=== PATIENT | female | born 1955 | race Two or more races ===

== ENCOUNTER 2018-10-01 22:46 | Inpatient (IN) | payer MEDICAID ==
[~2018-10-01] VITALS: Ht 157.5 cm; Wt 69.9 kg
[~2018-10-01 22:46] MED LIST: AMLO5TAB4 PO; BUPR75TA3 PO; CALC-834; ESTR1TAB9; FOLI0.4T2; GLUC100017; HYDR-3658; LEVO1POW; LORA-258; METH1POW; NAPR220C15; OMEP2.5S2; PRED5POW; TERI2.4P; [UNRECOGNIZED DRUG - CODE]; [UNRECOGNIZED DRUG - CODE]
--- NOTE | 2018-10-01 23:00 | NUR ---
PT BIB RA WITH A C/O LUE WOUND WITH PURULENT DRAINAGE. PT IS C/O 10/10 PAIN. PT TOOK A NORCO 10/325MG TAB BRAKE RIDER WITH NO RELIEF. PT IS UNABLE TO MOVE THE LUE WITHOUT PAIN. PT USES THE RT ARM TO MOVE THE LEFT. PT IS GUARDING THE LT ELBOW. LT ELBOW ELEVATED ON BLANKETS AND PADDED WITH 4X4 GAUZE.
--- NOTE | 2018-10-01 23:15 | NUR ---
PT HAD TO USE THE BATHROOM. BEDSIDE COMMODE WAS BROUGHT TO THE ROOM AND PT WAS ASSISTED TO THE COMMODE.
--- NOTE | 2018-10-01 23:20 | NUR ---
URINE SAMPLE OBTAINED AND SENT TO THE LAB.
[2018-10-01 23:24] LABS: BASOPHILS % (AUTO) 0.3 % (0.0-2.0); EOSINOPHILS % (AUTO) 3.2 % (0.0-6.0); HEMATOCRIT 47 % (33-45); HEMOGLOBIN 15.4 g/dL (11.5-14.8); LYMPHOCYTES # (AUTO) 0.5 /CMM (0.8-4.8); LYMPHOCYTES % (AUTO) 3.5 % (20.0-44.0); MEAN CORPUSCULAR HGB CONC 33 g/dl (31.0-36.0); MEAN CORPUSCULAR VOLUME 99 fL (82-100); MONOCYTES # (AUTO) 0.3 /CMM (0.1-1.30); MONOCYTES % (AUTO) 1.8 % (2.0-12.0); NEUTROPHILS # (AUTO) 13.5 /CMM (1.8-8.9); NEUTROPHILS % (AUTO) 91.2 % (43.0-81.0); PLATELET COUNT (AUTO) 324 /CMM (150-450); RED BLOOD CELL COUNT(AUTO) 4.79 MIL/uL (4.0-5.2); WHITE BLOOD COUNT (AUTO) 14.8 K/uL (4.3-11.0)
--- NOTE | 2018-10-01 23:25 | NUR ---
XRAY AT THE BEDSIDE.
--- NOTE | 2018-10-01 23:26 | NUR ---
PT REC'D PAIN MEDICATION ORDERED.
[2018-10-01] MEDS ORDERED: VANCOMYCIN 1 GM VIAL ONE (23:27)
[2018-10-01] MEDS ORDERED: MORPHINE SULFATE INJ 2 MG/ML DISP.SYRIN ONE (23:27)
[2018-10-01] MEDS ORDERED: PIPERACILLIN /TAZOBACTAM 3.375 G VIAL IV ONE (23:27)
[2018-10-01 23:28] LABS: APPEARANCE,URINE Cloudy (CLEAR); BILIRUBIN,URINE MODERATE (NEGATIVE); BLOOD, URINE Small Ery/uL (NEGATIVE); COLOR,URINE Amber (YELLOW); KETONES,URINE Trace (NEGATIVE); LEUKOCYTE ESTERASE ,URINE Negative (NEGATIVE); NITRITE, URINE Negative (NEGATIVE); PROTEIN,URINE 30 mg/dl (NEGATIVE); UGLUCOSE Negative (NEGATIVE); UROBILINOGEN,URINE 0.2 EU/dL (0.2)
[2018-10-01 23:30] LABS: CALCIUM, SERUM 8.7 mg/dL (8.5-10.1); CARBON DIOXIDE 20 mmol/L (21-32); CHLORIDE 98 mmol/L (98-107); CREATININE 1.2 mg/dL (0.6-1.3); GLUCOSE 197 mg/dL (74-106); POTASSIUM 3.2 mmol/L (3.5-5.1); SODIUM SERUM 134 mmol/L (136-145); UREA NITROGEN, BLOOD 14 mg/dL (7-18)
[2018-10-01] MEDS ORDERED: PIPERACILLIN /TAZOBACTAM 3.375 G in IV D5W 50 ML IV ONE (23:30)
[2018-10-01] MEDS ORDERED: VANCOMYCIN 1 GM in IV D5W 250 ML IV ONE (23:30)
[2018-10-01] MEDS ORDERED: MORPHINE SULFATE INJ 2 MG/ML DISP.SYRIN IV ONE (23:30)
[2018-10-01] MEDS ORDERED: ONDANSETRON HCL/PF 4 MG/2 ML VIAL ONE (23:34)
[2018-10-01 23:36] LABS: ALANINE AMINOTRANSFERASE 28 U/L (12-78); ALBUMIN 3.3 g/dL (3.4-5.0); ALKALINE PHOSPHATASE 78 U/L (46-116); ASPARTATE AMINOTRANSFERASE 19 U/L (15-37); BILIRUBIN,DIRECT 0.1 mg/dL (0.0-0.2); BILIRUBIN,TOTAL 0.6 mg/dL (0.2-1.0); TOTAL PROTEIN, SERUM 6.3 g/dL (6.4-8.2)
--- NOTE | 2018-10-01 23:36 | NUR ---
PT STATED THAT SHE WAS FEELING NAUSEATED. PT RECEIVED MEDICATION ORDERED.
--- NOTE | 2018-10-01 23:55 | NUR ---
US TECH IS AT THE BEDSIDE.
[2018-10-02] MEDS ORDERED: ONDANSETRON HCL/PF 4 MG/2 ML VIAL IV ONE
[2018-10-02] MEDS ORDERED: IV NS 0.9% 1,000 ML BAG IV ONE
[2018-10-02 00:04] LABS: BACTERIA,URINE Many /HPF (None Seen); RBC,URINE 0-2 /HPF (0-2); SQUAMOUS EPITHELIAL CELL,UR Many /HPF (None Seen); WBC,URINE 0-2 /HPF (0-3)
--- NOTE | 2018-10-02 00:50 | NUR ---
PT RANG THE CALL LIGHT AND STATED THAT SHE WAS FEELING ITCHY. MD NOTIFIED.
[2018-10-02] MEDS ORDERED: PRED1TAB PO (00:52)
[2018-10-02] MEDS ORDERED: TRAM50TA2 PO (00:52)
[2018-10-02] MEDS ORDERED: METH2.5T PO (00:52)
[2018-10-02] MEDS ORDERED: GABA600T12 PO (00:52)
[2018-10-02] MEDS ORDERED: CETI-102 PO (00:52)
[2018-10-02] MEDS ORDERED: FOLI1TAB16 PO (00:52)
[2018-10-02] MEDS ORDERED: LEVO100T9 PO (00:52)
[2018-10-02] MEDS ORDERED: diphenhydrAMINE HCL 50 MG/ML VIAL IV ONE (01:00)
[2018-10-02] MEDS ORDERED: diphenhydrAMINE HCL 50 MG/ML VIAL ONE (01:00)
--- NOTE | 2018-10-02 01:30 | NUR ---
PT RANG THE CALL LIGHT. PT STATED THAT SHE HAD TO USE THE BATHROOM. PT WAS UNABLE TO WALK TO THE BATHROOM DUE TO THE PAIN IN HER LUE. BEDSIDE COMMODE WAS USED. PT HAD APPROX 500 ML PALE YELLOW URINE OUTPUT. PT WAS ASSISTED BACK TO BED AND RECONNECTED TO THE MONITOR AND CONTINUOUS PULSE OX.
[2018-10-02] MEDS ORDERED: MORPHINE SULFATE INJ 4 MG/ML DISP.SYRIN ONE (01:43)
--- NOTE | 2018-10-02 01:50 | NUR ---
REPORT GIVEN TO LUCIANO DAVIS
--- NOTE | 2018-10-02 01:50 | NUR ---
ENDORSED THE SEPSIS REASSESSMENT AFTER FLUIDS TO LUCIANO DAVIS
[2018-10-02] MEDS ORDERED: MORPHINE SULFATE INJ 2 MG/ML DISP.SYRIN IV ONE (02:00)
[2018-10-02 02:15] VITALS: BP 141/82
--- NOTE | 2018-10-02 02:30 | NUR ---
RECEIVED AND ADMITTED PT FROM ER IN STABLE CONDITION. A, OX4. BREATHING EVENLY. NO SOB. NAD. WITH COMPLAINT OF L ELBOW PAIN. DRESSING WAS CHANGED , GOOD SKIN CARE RENDERED AND WOUND SAMPLE COLLECTED FOR CULTURE. ON ONGOING IVF THERAPY FROM ER. TOLERATED WELL . IV SITE INTACT AND PATENT. MEDICAL HISTORY WAS OBTAINED FROM THE PT AND THE FRIEND AT THE BED SIDE, VSS. UNABLE TO PERFORM A COMPLETE SKIN/ BODY CHECK DUE TO HER PHYSICAL CONDITION AND PAIN. NEEDS ATTENDED. BED LOW LOCKED. CALL LIGHT WITHIN REACH,. WILL CONT TO MONITOR AND WILL F/U WITH MD'S ORDERS
[2018-10-02] MEDS ORDERED: ACETAMINOPHEN 325 MG TABLET PO PRN (03:30)
[2018-10-02] MEDS ORDERED: ZOLPIDEM TARTRATE 5 MG TABLET PO PRN (03:30)
[2018-10-02] MEDS ORDERED: ALPRAZOLAM 0.25 MG TABLET PO PRN (03:30)
[2018-10-02] MEDS: HYDROCODONE/APAP 5/325MG 1 EACH TABLET PO PRN ×4 (03:32→20:13)
--- NOTE | 2018-10-02 03:35 | NUR ---
NORCO GIVEN FOR C/O L ELBOW PAIN. WILL CONT TO MONITOR.
[2018-10-02 04:00] VITALS: BP 116/95
--- NOTE | 2018-10-02 04:52 | NUR ---
PT REPORTED PAIN IS NOT MANAGED BY NORCO . PAGED DR. ABDALLA TO OBTAIN A NEW ORDER . AWAITING FOR HIS CALL BACK
--- NOTE | 2018-10-02 04:58 | NUR ---
RECEIVED A CALL BACK FROM DR ABDALLA W/ A NEW ORDER FOR - DILAUDID 1MG Q3HRS PRN - ZOFRAN 4MG Q4HRS PRN NEW ORDERS NOTED
[2018-10-02] MEDS ORDERED: CEFEPIME 1 GM in IV D5W 50 ML IV SCH (05:00)
[2018-10-02] MEDS: HYDROMORPHONE 1 MG/1 ML DISP.SYRIN IV PRN ×2 (05:08→10:22)
[2018-10-02] MEDS: ONDANSETRON HCL/PF 4 MG/2 ML VIAL IV PRN ×2 (05:12→10:26)
[2018-10-02] MEDS ORDERED: CEFEPIME 1 GM VIAL ONE (05:27)
--- NOTE | 2018-10-02 06:38 | NUR ---
PT IN BED AWAKE AND RESPONSIVE. BREATHING EVENLY. NO SOB. NO ACUTE DISTRESS. WITH ON AND OFF C/O PAIN ON LUE. PAIN MEDS GIVEN ORDERED PER PT'S REQUEST ./ NEEDS ATTENDED. BED LOW LOCKED. CALL LIGHT WITHIN REACH. WILL CONT TO MONITOR AND WILL ENDORSE TO AM SHIFT FOR ELTON .
--- NOTE | 2018-10-02 07:02 | NUR ---
MS RN NOTES PATIENT IN BED ALERT ORIENTED X 4. NO ACUTE DISTRESS NOTED. BREATHING UNLABORED. IV ACCESS PATENT AND INTACT, NO REDNESS OR SWELLING NOTED. SAFETY MEASURES IN PLACE. CALL LIGHT WITHIN REACH. WILL CONTINUE TO MONITOR ACCORDINGLY.
[2018-10-02] MEDS ORDERED: FEE PK DOSING 1 MIN EA MC ONE ×2 (07:43→07:48)
[2018-10-02 08:00] VITALS: BP 121/68
[2018-10-02] MEDS ORDERED: TRAMADOL HCL 50 MG TABLET PO PRN (08:30)
[2018-10-02 08:58] LABS: BASOPHILS % (AUTO) 0.2 % (0.0-2.0); EOSINOPHILS % (AUTO) 5.1 % (0.0-6.0); HEMATOCRIT 43 % (33-45); HEMOGLOBIN 13.6 g/dL (11.5-14.8); LYMPHOCYTES # (AUTO) 0.6 /CMM (0.8-4.8); LYMPHOCYTES % (AUTO) 5.2 % (20.0-44.0); MEAN CORPUSCULAR HGB CONC 32 g/dl (31.0-36.0); MEAN CORPUSCULAR VOLUME 99 fL (82-100); MONOCYTES # (AUTO) 0.3 /CMM (0.1-1.30); MONOCYTES % (AUTO) 2.8 % (2.0-12.0); NEUTROPHILS # (AUTO) 10.5 /CMM (1.8-8.9); NEUTROPHILS % (AUTO) 86.7 % (43.0-81.0); PLATELET COUNT (AUTO) 272 /CMM (150-450); RED BLOOD CELL COUNT(AUTO) 4.29 MIL/uL (4.0-5.2); WHITE BLOOD COUNT (AUTO) 12.2 K/uL (4.3-11.0)
[2018-10-02] MEDS: FOLIC ACID 1 MG TABLET PO SCH (09:00)
[2018-10-02] MEDS: LEVOTHYROXINE SODIUM 100 MCG TABLET PO SCH (09:00)
[2018-10-02] MEDS: AMLODIPINE BESYLATE 5 MG TABLET PO SCH (09:00)
[2018-10-02] MEDS: cetrizine 10 MG TABLET PO SCH (09:00)
[2018-10-02 09:07] LABS: CALCIUM, SERUM 7.7 mg/dL (8.5-10.1); CREATININE 0.7 mg/dL (0.6-1.3); POTASSIUM 3.1 mmol/L (3.5-5.1)
--- NOTE | 2018-10-02 09:30 | NUR ---
WOUND CARE CONSULT: PT PRESENTS WITH LEFT ELBOW DRAINING PURULENT WOUND (PREVIOUS SURGICAL SITE OF ELBOW REPLACEMENT), PRESENT ON ADMISSION. ORTHO CONSULTED PER PMD. RECOMMENDATIONS MADE FOR LOCAL CARE AND SKIN PROTECTION AND DISCUSSED WITH NURSING STAFF. PT REFUSED NEED FOR FULL SKIN ASSESSMENT. WILL SEE PRN. MARTINEZ IN AGREEMENT WITH PLAN OF CARE. CURRENT ISAURO SCORE IS 18. Addendum: 10/02/18 at 0959 by JOE SALMERON WNDNU Amended: Links added.
[2018-10-02] MEDS: VANCOMYCIN 0.75 GM in IV D5W 250 ML IV SCH (12:53)
[2018-10-02] MEDS: GABAPENTIN 300 MG CAPSULE PO SCH ×2 (12:53→16:26)
[2018-10-02 16:00] VITALS: BP 115/71
[2018-10-02] MEDS: CEFEPIME 2 GM in IV D5W 100 ML IV SCH (16:26)
--- NOTE | 2018-10-02 18:15 | NUR ---
MS RN NOTES NOTED REDNESS ON THE LOWER BACK PATIENT STATED SHE'S ITCHING AT THE LOWER BACK WHERE SHE'S LYING ON WITH UNDER PADS. PATIENT STATED SHE'S ALLERGIC TO PLASTIC. UNDER PADS REMOVED, REPLACED WITH COTTON LINEN. NO SOB NOTED. BREATHING UNLABORED. NOTIFIED DR ABDALLA WITH NEW ORDERS FOR BENADRYL. WILL CONTINUE TO MONITOR PATIENT.
[2018-10-02] MEDS ORDERED: POTASSIUM CHLORIDE 20 MEQ TAB.PRT.SR PO ONE (18:30)
[2018-10-02] MEDS ORDERED: diphenhydrAMINE HCL ELIX 25 MG/10 ML UDC PO PRN (18:30)
--- NOTE | 2018-10-02 19:00 | NUR ---
MS RN NOTES PATIENT IN BED ALERT ORIENTED X 4. NO ACUTE DISTRESS NOTED. BREATHING UNLABORED. IV ACCESS PATENT AND INTACT, NO REDNESS OR SWELLING NOTED. DUE MEDICATIONS GIVEN, NO ASE NOTED. NEEDS ATTENDED AND ANTICIPATED. KEPT CLEAN DRY AND COMFORTABLE. ENCOURAGE TURNING AND REPOSTIONING EVERY [address] CALL LIGHT WITHIN REACH. ENDORSED TO NIGHT NURSE FOR CONTINUITY OF CARE.
--- NOTE | 2018-10-02 19:30 | NUR ---
MS RN NOTES RECEIVED RESTING COMFORTABLY ON BED A/O X4,BREATHING REGULAR,NOT IN ANY FORM OF DISTRESS,LEFT ARM ELBOW APPEARS SWOLLEN WITH DISCHARGES NOTED.DRESSING INTACT AND DRY ELEVATED ON PILLOWS.SALINE LOCK RIGHT WRIST INTACT AND PATENT.NO PAIN AT THE MOMENT.CALL LIGHT IN REACH,NEEDS ANTICIPATED.
[2018-10-02 20:00] VITALS: BP 112/69
--- NOTE | 2018-10-02 20:13 | NUR ---
MS RN NOTES PAIN MANAGEMENT X/O PAIN 7/10 ON LEFT ELBOW,NORCO 5/325MG,1 TAB PO GIVEN,BLOOD PRESSURE 112/69.
[2018-10-02 20:42] VITALS: BP 112/69
[2018-10-02] MEDS ORDERED: buPROPion 75 MG TABLET PO SCH (22:00)
--- NOTE | 2018-10-02 22:00 | NUR ---
MS RN NOTES SOUND ASLEEP,LEFT ELBOW ELEVATED ON PILLOWS
[2018-10-03] MEDS: VANCOMYCIN 0.75 GM in IV D5W 250 ML IV SCH ×2 (00:04→12:08)
[2018-10-03] MEDS: HYDROCODONE/APAP 5/325MG 1 EACH TABLET PO PRN ×4 (00:29→14:02)
--- NOTE | 2018-10-03 00:30 | NUR ---
MS RN NOTES PAIN MANAGEMENT C/O PAIN LEFT ELBOW 5/10 ON PAIN SCALE,MEDICATED WITH NORCO 5/325MG,1 TAB PO ORDERED.
[2018-10-03] MEDS: CEFEPIME 2 GM in IV D5W 100 ML IV SCH (05:11)
--- NOTE | 2018-10-03 05:58 | NUR ---
MS RN NOTES PAIN MANAGEMENT AWAKE,PUT SELF ON SITTING POSITION.C/O PAIN ON LEFT ELBOW 6/10 ON PAIN SCALE,NORCO 5/325MG,1 TAB PO GIVEN
[2018-10-03 06:38] LABS: BASOPHILS % (AUTO) 0.2 % (0.0-2.0); EOSINOPHILS % (AUTO) 6.3 % (0.0-6.0); HEMATOCRIT 40 % (33-45); HEMOGLOBIN 13.1 g/dL (11.5-14.8); LYMPHOCYTES # (AUTO) 0.9 /CMM (0.8-4.8); LYMPHOCYTES % (AUTO) 11.4 % (20.0-44.0); MEAN CORPUSCULAR HGB CONC 33 g/dl (31.0-36.0); MEAN CORPUSCULAR VOLUME 98 fL (82-100); MONOCYTES # (AUTO) 0.4 /CMM (0.1-1.30); MONOCYTES % (AUTO) 4.7 % (2.0-12.0); NEUTROPHILS # (AUTO) 6.4 /CMM (1.8-8.9); NEUTROPHILS % (AUTO) 77.4 % (43.0-81.0); PLATELET COUNT (AUTO) 283 /CMM (150-450); RED BLOOD CELL COUNT(AUTO) 4.03 MIL/uL (4.0-5.2); WHITE BLOOD COUNT (AUTO) 8.3 K/uL (4.3-11.0)
[2018-10-03 06:46] LABS: CALCIUM, SERUM 7.8 mg/dL (8.5-10.1); CREATININE 0.7 mg/dL (0.6-1.3); POTASSIUM 3.3 mmol/L (3.5-5.1)
--- NOTE | 2018-10-03 06:47 | NUR ---
MS RN NOTES SLEPT WITH NORCO,LEFT ARM KEPT ELEVATED ON PILLOWS,DRESSING INTACT AND DRY.IV ABX TOLERATED WELL.CALL LIGHT IN REACH,NEEDS ATTENDED.WILL ENDORSE TO DAY NURSE FOR ELTON.
--- NOTE | 2018-10-03 07:30 | NUR ---
MS/RN Patient received Patient received from hourly shift. A/O X4, vital signs stable. Left arm remain with edema, arm pink and warm to touch. Encouraged to move all fingers to help with circulation. Call ight within reach, will continue to monitor and ensure safety.
[2018-10-03 08:00] VITALS: BP 98/61
[2018-10-03] MEDS: cetrizine 10 MG TABLET PO SCH (08:14)
[2018-10-03] MEDS: FOLIC ACID 1 MG TABLET PO SCH (08:15)
[2018-10-03 08:16] VITALS: BP 98/61
[2018-10-03] MEDS: LEVOTHYROXINE SODIUM 100 MCG TABLET PO SCH (08:16)
[2018-10-03] MEDS: AMLODIPINE BESYLATE 5 MG TABLET PO SCH (08:16)
[2018-10-03] MEDS: GABAPENTIN 300 MG CAPSULE PO SCH ×2 (08:16→12:07)
--- NOTE | 2018-10-03 08:45 | NUR ---
MS/RN S/B Dr Cisneros Seen by Dr Cisneros - patient for possible discharge later today, will need to follow up with orthopedic surgeon.
[2018-10-03] MEDS: predniSONE 1 MG TABLET PO SCH ×2 (09:00→14:02)
--- NOTE | 2018-10-03 09:01 | NUR ---
MS/RN Medications Morning medications administered as ordered.
[2018-10-03] MEDS ORDERED: POTASSIUM CHLORIDE 20 MEQ TAB.PRT.SR PO SCH (11:30)
--- NOTE | 2018-10-03 15:13 | NUR ---
MS/RN GABRIELLA Patient left hospital at 1510 against medical advice. Heplock and name bands removed, dressing changed and pictures taken prior to leaving. Explained to patient the risks involved in leaving against medical advice including further traveling of infection, damage to tissues in arm but still insisting on leaving. Patient explained the importance of following up with primary care doctor or orthopedic doctor as soon as possible to prevent infection from occurring to left arm. Instructed to go to the nearest emergency room if unable to get appointment. All personal belongings returned to patient and signed for on belongings list. Escorted to main lobby by CANAL SUPERINTENDENT and , Dr Cisneros, nursing supervisor paste mixing and charge nurse made aware.
[2018-10-06] MEDS ORDERED: METHOTREXATE SODIUM (2.5MG) 2.5 MG TABLET PO SCH (09:00)
== END 2018-10-03 15:05 | disposition left against medical advice (07) | DRG 349 ==
LOC: ER 22:48 → TELE 10-02 01:45 → MED 10-02 10:56
PROVIDERS: ADMIT Internal Medicine; ATTEND Internal Medicine
DX: T84.59XA Infection and inflammatory reaction due to other internal joint prosthesis, initial encounter (principal); M86.18 Other acute osteomyelitis, other site; F32.9 Major depressive disorder, single episode, unspecified; I10 Essential (primary) hypertension; Y83.9 Surgical procedure, unspecified as the cause of abnormal reaction of the patient, or of later complication, without mention of misadventure at the time of the procedure; Y92.009 Unspecified place in unspecified non-institutional (private) residence as the place of occurrence of the external cause; M06.9 Rheumatoid arthritis, unspecified; F41.9 Anxiety disorder, unspecified; Z98.890 Other specified postprocedural states; Z79.899 Other long term (current) drug therapy; E03.9 Hypothyroidism, unspecified; E87.6 Hypokalemia
CPT/HCPCS: 36415; 71045-TC; 73080-TC; 80048-TC; 80076-TC; 80202-TC; 81000-TC; 83605-TC; 84484-TC; 85025-TC; 85730-TC; 87040-TC; 87070-TC; 87081-TC; 87086-TC; 93971-TC; A6253; A6402; A6403; G0378; J0692; J1170; J1200; J2270; J2405; J2543; J3370; J7030; J7040; J7050; J7060; J7512; Q0163

== ENCOUNTER 2018-10-11 21:07 | Inpatient (IN) | payer MEDICAID ==
[~2018-10-11] VITALS: Ht 162.6 cm; Wt 63.5 kg
[~2018-10-11 21:07] MED LIST changes: -CALC-834; +CETI-102 PO; -ESTR1TAB9; -FOLI0.4T2; +FOLI1TAB16 PO; +GABA600T12 PO; -GLUC100017; -HYDR-3658; +LEVO100T9 PO; -LEVO1POW; -LORA-258; -METH1POW; +METH2.5T PO; -NAPR220C15; -OMEP2.5S2; +PRED1TAB PO; -PRED5POW; -TERI2.4P; +TRAM50TA2 PO; -[UNRECOGNIZED DRUG - CODE]; -[UNRECOGNIZED DRUG - CODE]
--- NOTE | 2018-10-11 21:15 | NUR ---
PT BIBRA39 FROM HOME C/O AMS X 1 DAY PER . PATIENT JUST D/C FROM HERE LAST WEEK PER . PATIENT IS NONVERBAL AT THIS TIME. PT ON MONITOR IN BED 8. WILL CONTINUE TO MONITOR. AT BEDSIDE.
[2018-10-11] MEDS ORDERED: IV NS 0.9% 1,000 ML BAG IV ONE (21:30)
--- NOTE | 2018-10-11 21:41 | NUR ---
PHLEB AT BEDSIDE FOR LAB DRAW
[2018-10-11 21:46] LABS: BASOPHILS # (AUTO) 0.1 /CMM (0.0-0.2); EOSINOPHILS % (AUTO) 0.9 % (0.0-6.0); HEMATOCRIT 48 % (33-45); LYMPHOCYTES # (AUTO) 1.6 /CMM (0.8-4.8); LYMPHOCYTES % (AUTO) 19.1 % (20.0-44.0); MEAN CORPUSCULAR HGB CONC 34 g/dl (31.0-36.0); MEAN CORPUSCULAR VOLUME 97 fL (82-100); MONOCYTES # (AUTO) 1.1 /CMM (0.1-1.30); NEUTROPHILS # (AUTO) 5.5 /CMM (1.8-8.9); PLATELET COUNT (AUTO) 437 /CMM (150-450); RED BLOOD CELL COUNT(AUTO) 4.92 MIL/uL (4.0-5.2); WHITE BLOOD COUNT (AUTO) 8.3 K/uL (4.3-11.0)
--- NOTE | 2018-10-11 21:48 | NUR ---
TECH AT BEDSIDE FOR EKG
--- NOTE | 2018-10-11 21:51 | NUR ---
RADIOLOGY AT BEDSIDE FOR XRAY
[2018-10-11 21:56] LABS: CALCIUM, SERUM 8.9 mg/dL (8.5-10.1); CARBON DIOXIDE 14 mmol/L (21-32); CHLORIDE 104 mmol/L (98-107); CREATININE 0.7 mg/dL (0.6-1.3); GLUCOSE 114 mg/dL (74-106); POTASSIUM 3.4 mmol/L (3.5-5.1); SODIUM SERUM 138 mmol/L (136-145); UREA NITROGEN, BLOOD 12 mg/dL (7-18)
[2018-10-11 22:02] LABS: ALANINE AMINOTRANSFERASE 28 U/L (12-78); ALBUMIN 3.2 g/dL (3.4-5.0); ALKALINE PHOSPHATASE 82 U/L (46-116); ASPARTATE AMINOTRANSFERASE 23 U/L (15-37); BILIRUBIN,DIRECT 0.2 mg/dL (0.0-0.2); BILIRUBIN,TOTAL 0.7 mg/dL (0.2-1.0); TOTAL PROTEIN, SERUM 7.3 g/dL (6.4-8.2)
[2018-10-11] MEDS ORDERED: PIPERACILLIN /TAZOBACTAM 3.375 G in IV D5W 50 ML IV ONE (22:30)
[2018-10-11] MEDS ORDERED: LEVOFLOXACIN 750 MG /D5W 150ML PIGGYBACK IV ONE (22:30)
[2018-10-11] MEDS ORDERED: PIPERACILLIN /TAZOBACTAM 3.375 G VIAL IV ONE (22:31)
[2018-10-11] MEDS ORDERED: LEVOFLOXACIN 750 MG /D5W 150ML 150 ML IV ONE (22:31)
[2018-10-11 23:08] LABS: B-TYPE NATRIURETIC PEPTIDE 76 PG/ML (0-125)
[2018-10-11 23:11] LABS: T4 (THYROXINE) 12.7 ug/dL (4.7-13.3); THYROID STIMULATING HORMONE 0.074 uIU/mL (0.358-3.74)
[2018-10-11 23:18] LABS: ABG OXYGEN SATURATION 95.2 % (92.0-98.5); ABG PH 7.464 (7.350-7.450); ABG PO2 72.4 mmHg (75.0-100.0); AaDO2 53.4 mmHg; COHb 0.7 % (0.5-1.5); MetHb 0.6 % (0.0-1.5); SITE, ABG Right Brachial; VENT MODE, BG RA
--- NOTE | 2018-10-11 23:43 | NUR ---
WOUND CULTURE SWAB OF L FOREARM SENT TO LAB
--- NOTE | 2018-10-11 23:43 | NUR ---
PT ON 4L NC, PER MD ORDER.
--- NOTE | 2018-10-11 23:58 | NUR ---
BED 115-2
[2018-10-12] VITALS (46 sets, daily range): BP systolic 96–160; BP diastolic 43–101
[2018-10-12] MEDS ORDERED: IV NS 0.9% 1,000 ML BAG IV ONE
[2018-10-12] MEDS ORDERED: VANCOMYCIN 1 GM in IV D5W 250 ML IV ONE ×2
--- NOTE | 2018-10-12 00:52 | NUR ---
0047 ETOMIDATE 20MG 0047 SUCCINYLCHOLINE 100MG 0049 21 CM AT THE LIP
--- NOTE | 2018-10-12 00:54 | NUR ---
VENT SETTINGS: TV 500 FIO2 100 PEEP +5
--- NOTE | 2018-10-12 00:55 | NUR ---
RADIOLOGY AT BEDSIDE FOR XRAY
[2018-10-12] MEDS ORDERED: ETOMIDATE 2 MG/ML VIAL IV ONE ×2 (01:00→10:03)
[2018-10-12] MEDS ORDERED: SUCCINYLCHOLINE CHLORIDE 20 MG/ML VIAL IV ONE ×2 (01:00→10:03)
[2018-10-12] MEDS ORDERED: PROPOFOL 20 ML IV ONE (01:02)
[2018-10-12] MEDS ORDERED: PROPOFOL 100 ML ONE (01:02)
[2018-10-12] MEDS ORDERED: PROPOFOL 100 ML IV ONE (01:04)
[2018-10-12 01:21] LABS: ABG BASE EXCESS -9.3 mmol/L; ABG OXYGEN SATURATION 99.3 % (92.0-98.5); ABG PCO2 20.4 mmHg (35.0-45.0); ABG PH 7.413 (7.350-7.450); ABG PO2 486.4 mmHg (75.0-100.0); AaDO2 206.2 mmHg; COHb 0.4 % (0.5-1.5); MetHb 0.7 % (0.0-1.5); O2Hb 98.2 % (94.0-97.0); SITE, ABG Right Brachial
--- NOTE | 2018-10-12 01:22 | NUR ---
CALLED DR. ABDALLA ON PHONE WITH ER DOC
--- NOTE | 2018-10-12 01:24 | NUR ---
PICC LINE CONEST FORM OBTAINED BY DAMION RUELAS
--- NOTE | 2018-10-12 01:25 | NUR ---
PICC LINE NURSE AT BEDSIDE
[2018-10-12] MEDS ORDERED: PROPOFOL 200 MG/20 ML VIAL IV ONE (01:30)
--- NOTE | 2018-10-12 01:53 | NUR ---
REPORT GIVEN TO ED, RN FOR ELTON
--- NOTE | 2018-10-12 01:53 | NUR ---
VANCOMYCIN 1GM ENDORSED TO ED, RN TO INFUSE ON FLOOR. MD ORDER SHEET GIVEN.
[2018-10-12] MEDS ORDERED: VANCOMYCIN 1 GM VIAL ONE (01:55)
[2018-10-12] MEDS ORDERED: LEVALBUTEROL HCL NEB 1.25 MG/0.5 ML VIAL.NEB NEB PRN (02:00)
[2018-10-12] MEDS ORDERED: IPRATROPIUM NEB FS 0.5 MG/2.5 ML AMPUL.NEB NEB PRN (02:00)
--- NOTE | 2018-10-12 02:15 | NUR ---
ICU/CREW SCHEDULER RECEIVED PT ORALLY INTUBATED FROM ER ON VENT, SEE FLOWSHEET FOR VENT SETTINGS.PT IS CURRENTLY SEDATED WITH PROPOFOL. PT ALSO ARRIVED TO UNIT WITH SKIN ISSUES WHICH ARE ADDRESSED ALONG WITH INTERVENTIONS TO EACH. SEE FLOWSHEET FOR DETAILED ASSESSMENT. PT WAS TURNED AND REPOSITIONED FOR COMFORT AND CARE.
--- NOTE | 2018-10-12 02:27 | NUR ---
RT NOTE PATIENT RECEIVED IN ICU 257 INTUBATED. CURRENT SETTINGS OF AC 24, 500, 100%, +5. CUFF CHECKED VIA STONER HAND. AMBU BAG @ HOB. VENT PLUGGED INTO RED OUTLET. ALARMS ON AND AUDIBLE. PATIENT HAS 7.0 ET TUBE @ 21 LIP LINE. SX DONE, SMALL WHITE THIN SECRETIONS NOTED. WILL CONTINUE TO MONITOR. Addendum: 10/12/18 at 0229 by SARA PIKE RT Amended: Links added.
[2018-10-12] MEDS ORDERED: Potassium Chloride 10 MEQ in IV D5/0.45 NACL 1,000 ML IV PRN ×2 (02:30→08:00)
[2018-10-12] MEDS ORDERED: POTASSIUM CHLORIDE 10 MEQ/50 ML PREMIXED IVPB FOR PERIPHERAL LINE IV ONE ×2 (02:30→08:30)
[2018-10-12] MEDS ORDERED: IV 1/2NS 1000 ML 1,000 ML IV SCH (02:30)
[2018-10-12] MEDS ORDERED: LABETALOL HCL IV 100MG VIAL IV PRN (02:30)
[2018-10-12] MEDS: PROPOFOL 100 ML IV PRN (02:56)
[2018-10-12] MEDS: POTASSIUM CL. PREMIX PERIPHER. 50 ML IV SCH ×6 (03:03→12:05)
--- NOTE | 2018-10-12 03:10 | NUR ---
ICU/NEWSPAPER PUBLISHER OF PT CAME IN TO SEE , STAYED FOR 30-45 MINUTES SAID HE'LL BE IN TOMORROW. BUSINESS CARD TO ICU GIVEN TO PT.
[2018-10-12] MEDS ORDERED: IV PREMIX D5 1/2NS + KCL 1,000 ML IV ONE (03:45)
[2018-10-12] MEDS ORDERED: Folic acid 1 MG/0.2 ML VIAL ONE (03:45)
[2018-10-12] MEDS: Folic acid 1 MG in IV D5W 50 ML IV SCH (03:57)
[2018-10-12] MEDS ORDERED: Potassium Chloride 20 MEQ in IV D5/0.45 NACL 1,000 ML IV ONE (04:00)
[2018-10-12 04:37] LABS: BASOPHILS # (AUTO) 0.1 /CMM (0.0-0.2); BASOPHILS % (AUTO) 1.3 % (0.0-2.0); EOSINOPHILS % (AUTO) 0.5 % (0.0-6.0); HEMATOCRIT 41 % (33-45); HEMOGLOBIN 13.5 g/dL (11.5-14.8); LYMPHOCYTES # (AUTO) 1.4 /CMM (0.8-4.8); LYMPHOCYTES % (AUTO) 16.2 % (20.0-44.0); MEAN CORPUSCULAR HGB CONC 33 g/dl (31.0-36.0); MEAN CORPUSCULAR VOLUME 96 fL (82-100); MONOCYTES # (AUTO) 1.3 /CMM (0.1-1.30); MONOCYTES % (AUTO) 15.5 % (2.0-12.0); NEUTROPHILS # (AUTO) 5.7 /CMM (1.8-8.9); NEUTROPHILS % (AUTO) 66.5 % (43.0-81.0); PLATELET COUNT (AUTO) 357 /CMM (150-450); RED BLOOD CELL COUNT(AUTO) 4.21 MIL/uL (4.0-5.2); WHITE BLOOD COUNT (AUTO) 8.6 K/uL (4.3-11.0)
[2018-10-12 04:53] LABS: ALBUMIN 2.5 g/dL (3.4-5.0); BILIRUBIN,TOTAL 0.8 mg/dL (0.2-1.0); CALCIUM, SERUM 7.3 mg/dL (8.5-10.1); CREATININE 0.6 mg/dL (0.6-1.3); MAGNESIUM 1.5 mg/dL (1.8-2.4); POTASSIUM 3.4 mmol/L (3.5-5.1); TOTAL PROTEIN, SERUM 5.9 g/dL (6.4-8.2)
--- NOTE | 2018-10-12 04:55 | NUR ---
ICU/CANOE MAKER AM LABS WERE DRAWN FOR THIS PT. AWAIT FOR ANY ABNORMAL RESULTS.
[2018-10-12] MEDS ORDERED: PIPERACILLIN /TAZOBACTAM 3.375 G in IV D5W 50 ML IV ONE (05:00)
[2018-10-12] MEDS ORDERED: PIPERACILLIN /TAZOBACTAM 3.375 G VIAL IV ONE (05:09)
--- NOTE | 2018-10-12 05:29 | NUR ---
ICU/WELT INSOLE CHANNELER PT IS CONTINUING TO GET POTASSIUM REPLACEMENT WELL IVF WITH 20MEQ OF POTASSIUM. THIS WILL BE CHANGED OVER TO 10MEQ OF POTASSIUM WHEN PHARMACY OPEN DUE TO LIMITED STOCK OF NIGHT LOCKER. WAS CALLED AND MADE AWARE
[2018-10-12 05:42] LABS: BAND % (MANUAL) 1 % (0.0-5.0); EOSINOPHILS % (MANUAL) 1 % (0-4); LYMPHOCYTES % (MANUAL) 20 % (16-48); METAMYELOCYTES % 2 % (0-0); MONOCYTES % (MANUAL) 8 % (0-11.0); MYELOCYTES % 4 % (0-0); NEUTROPHILS % (MANUAL) 61 (42-76); REACTIVE LYMPHOCYTES 3 % (0-0)
[2018-10-12] MEDS ORDERED: PIPERACILLIN /TAZOBACTAM 3.375 G in IV D5W 50 ML IV SCH ×2 (06:00→12:00)
[2018-10-12] MEDS ORDERED: FEE PK DOSING 1 MIN EA MC ONE (07:50)
[2018-10-12] MEDS: LEVOTHYROXINE INJ 100 MCG VIAL IV SCH (08:16)
[2018-10-12] MEDS: FAMOTIDINE/PF INJ 20 MG/2 ML VIAL IV SCH ×2 (08:16→21:20)
[2018-10-12] MEDS: HEPARIN SODIUM, PORCINE 5000 UNITS/1 ML VIAL SQ SCH ×2 (08:26→21:21)
--- NOTE | 2018-10-12 08:30 | NUR ---
RT NOTE PATIENT RECEIVED INTUBATED. CURRENT SETTINGS OF AC 24, 500, 100%, +5. CUFF CHECKED VIA SSIS ARCHITECT. AMBU BAG @ HOB. VENT PLUGGED INTO RED OUTLET. ALARMS ON AND AUDIBLE. PATIENT HAS 7.0 ET TUBE @ 21 LIP LINE. SX DONE, SMALL WHITE THIN SECRETIONS NOTED. WILL CONTINUE TO MONITOR
[2018-10-12] MEDS: Magnesium 1GM/D5W 100ML PREMIX 100 ML IV SCH ×3 (08:44→10:49)
[2018-10-12] MEDS: PIPERACILLIN /TAZOBACTAM 3.375 G in IV D5W 100 ML IV SCH ×3 (08:55→23:25)
[2018-10-12] MEDS: AMLODIPINE BESYLATE 5 MG TABLET PO SCH (08:57)
[2018-10-12] MEDS: cetrizine 10 MG TABLET PO SCH (08:57)
[2018-10-12] MEDS: GABAPENTIN 300 MG CAPSULE PO SCH ×3 (08:57→17:00)
[2018-10-12] MEDS ORDERED: FOLIC ACID 1 MG TABLET PO SCH (09:00)
[2018-10-12] MEDS ORDERED: ALBUTEROL HALF STRENGTH 1.25 MG/3 ML VIAL.NEB NEB PRN (09:00)
[2018-10-12] MEDS ORDERED: LEVOTHYROXINE SODIUM 100 MCG TABLET PO SCH (09:00)
[2018-10-12] MEDS ORDERED: TRAMADOL HCL 50 MG TABLET PO PRN (09:00)
--- NOTE | 2018-10-12 09:19 | NUR ---
received pt from shift nurse manager, sedated on Diprivan at 15mcg, ST, on the vent, lungs clear, no edema, OG to ILS, f/c OK output, NPO, v/s stable, no pain, pt turned and repositioned.
[2018-10-12] MEDS ORDERED: SODIUM BICARBONATE SYR 50 MEQ/50 ML DISP.SYRIN IV ONE (09:30)
--- NOTE | 2018-10-12 09:39 | NUR ---
RT NOTE PER MD ORDER CHANGED VENT SETTINGS TO RR 20 AND FIO2 40%
[2018-10-12 09:53] LABS: APPEARANCE,URINE TURBID (CLEAR); BILIRUBIN,URINE 1+ (NEGATIVE); BLOOD, URINE 1+ Ery/uL (NEGATIVE); COLOR,URINE YELLOW (YELLOW); KETONES,URINE 2+ (NEGATIVE); LEUKOCYTE ESTERASE ,URINE NEGATIVE (NEGATIVE); NITRITE, URINE NEGATIVE (NEGATIVE); PROTEIN,URINE TRACE mg/dl (NEGATIVE); UGLUCOSE NEGATIVE (NEGATIVE); UROBILINOGEN,URINE 0.2 EU/dL (0.2)
[2018-10-12] MEDS: predniSONE 1 MG TABLET PO SCH (10:00)
[2018-10-12] MEDS ORDERED: POTASSIUM CL. PREMIX PERIPHER. 50 ML IV SCH (10:00)
[2018-10-12] MEDS: predniSONE 10 MG TABLET PO SCH (10:00)
[2018-10-12] MEDS: Sodium Acetate 100 MEQ in IV D5W 1,000 ML IV PRN ×2 (10:39→22:41)
[2018-10-12 10:42] LABS: BACTERIA,URINE Rare /HPF (None Seen); RBC,URINE 0-2 /HPF (0-2); SQUAMOUS EPITHELIAL CELL,UR Rare /HPF (None Seen); WBC,URINE 0-2 /HPF (0-3)
[2018-10-12 10:44] LABS: URINE AMORPHOUS URATE Many /HPF (None Seen)
[2018-10-12] MEDS: VANCOMYCIN 1 GM in IV D5W 250 ML IV SCH (14:23)
--- NOTE | 2018-10-12 17:00 | NUR ---
pt sedated on Diprivan at 15mcg, ST, OG to ILS, f/c good output, v/s stable, no pain, pt cleaned, changed and repositioned q2hrs.
--- NOTE | 2018-10-12 19:25 | NUR ---
ICU/RESIDENTIAL AIR SEALING TECHNICIAN RECEIVED REPORT FROM DAY NURSE. SEE FLOWSHEET FOR ASSESSMENT, ALONG WITH ANY AND ALL SKIN ISSUES WHICH ARE ADDRESSED ALONG WITH THE EACH OF THE INTERVENTIONS TO THESE. PT IS CURRENTLY ON SEDATION, TOLERATING THIS WELL, WELL IVF WHICH ARE ADDRESSED ON THE IV SPREAD SHEET.PT WAS TURNED AND REPOSITIONED FOR COMFORT AND CARE. WILL CONTINUE TO MONITOR THIS PT CLOSELY.
--- NOTE | 2018-10-12 20:39 | NUR ---
ICU/DISTRICT ASSOCIATE JUDGE UPON ASSESSMENT OF PT. SHE WAS FOUND TO HAVE A TEMP OF 102.8. RECTAL PROBE WAS PLACED THEN TEMP INCREASED TO 103.1. COOLING MEASURES WERE PUT IN PLACE WITH ICE PACKS, ALONG WITH FAN. ALSO AT THIS TIME URINE AND RESPIRATORY CULTURES WERE DONE. BLOOD CULTURES WERE DONE YESTERDAY UPON ADMISSION WELL WOUND CULTURE OF THE LEFT ELBOW. WILL CONTINUE TO MONITOR THIS PT'S TEMP.
--- NOTE | 2018-10-12 21:03 | NUR ---
ICU/GENETICIST CALLED DR ABDALLA TO GET ORDER FOR TYLENOL AND PAIN MEDICATION. ORDERS WERE RECEIVED FOR TYLENOL 650MG PO Q 6 HRS AND MORPHINE 2MG IVP Q 3 HRS FOR PAIN. ORDERS WERE CARRIED OUT AND CHARGE NURSE WAS NOTIFIED OF THIS NEW CHANGES. ALSO AT THIS TIME DR ABDALLA D/C'D THE LOW INTERMITTING SUCTION.
--- NOTE | 2018-10-12 21:20 | NUR ---
ICU/AUTOMATIC DISPENSER MECHANIC NOTIFIED CHARGE NURSE ABOUT THE FLACC PAIN SCALE OF 7/10. MORPHINE 2MG GIVEN IVP BY CHARGE NURSE. ALSO FOR TEMP OF 102.3 GAVE TYLENOL VIA NGT. WILL CONTINUE TO MONITOR THIS PT'S PAIN AND TEMP. PT WAS TURNED AND REPOSITIONED FOR COMFORT AND CARE.
[2018-10-12] MEDS: MORPHINE SULFATE INJ 2 MG/ML DISP.SYRIN IV PRN (21:29)
[2018-10-12] MEDS: ACETAMINOPHEN 650 MG/20.3 ML UDC NG PRN (21:30)
[2018-10-12] MEDS: buPROPion 75 MG TABLET PO SCH (22:00)
--- NOTE | 2018-10-12 22:10 | NUR ---
ICU/TAX INVESTIGATOR PT 2200 DOSE OF WELLBUTRIN WAS HELD DUE TO PT IS CURRENTLY ORALLY INTUBATED ON SEDATION OF PROPOFOL AT 15MCG. WILL RESUME MEDICATION WHEN PT IS MORE ALERT. CHARGE NURSE MADE AWARE OF THIS.
--- NOTE | 2018-10-12 23:40 | NUR ---
ICU/EQUITY STRUCTURER PT'S AT BEDSIDE FOR VISIT ASKED FOR WHO IS LINSEED CAKE TRIMMER, DR CHASE WAS THE NAME GIVEN WHO THIS PT'S SEE'S. AND ALSO ASKED ABOUT ANY RA MEDICATION. METHOTREXATE SODIUM 2.5 IS WHAT THE PT NORMALLY TAKES.
[2018-10-13] VITALS (37 sets, daily range): BP systolic 90–173; BP diastolic 47–116
[2018-10-13] MEDS: Folic acid 1 MG in IV D5W 50 ML IV SCH (01:13)
--- NOTE | 2018-10-13 01:30 | NUR ---
ICU/PRODUCTION MACHINIST PT WAS GIVEN AM CARE ALONG WITH ORAL CARE. PT TOLERATED THIS WELL. PT REMAINS ON CURRENT VENT SETTINGS, WITH SATURATION AT 99-100%. PT WAS TURNED AND REPOSITIONED FOR COMFORT AND CARE. WILL CONTINUE TO MONITOR THIS PT.
[2018-10-13] MEDS: PROPOFOL 100 ML IV PRN (02:14)
[2018-10-13] MEDS: VANCOMYCIN 1 GM in IV D5W 250 ML IV SCH ×2 (02:14→15:01)
[2018-10-13] MEDS: MORPHINE SULFATE INJ 2 MG/ML DISP.SYRIN IV PRN ×3 (02:26→23:19)
[2018-10-13] MEDS: ACETAMINOPHEN 650 MG/20.3 ML UDC NG PRN ×2 (03:24→21:17)
--- NOTE | 2018-10-13 03:42 | NUR ---
ICU/ADJUSTER LEADER NOTIFIED CHARGE NURSE ABOUT THE FLACC PAIN SCALE OF 7/10. MORPHINE 2MG GIVEN IVP BY CHARGE NURSE AT 0245. ALSO FOR TEMP OF 101.5 GAVE TYLENOL VIA NGT. WILL CONTINUE TO MONITOR THIS PT'S PAIN AND TEMP. PT WAS TURNED AND REPOSITIONED FOR COMFORT AND CARE. ALSO AT THIS TIME LEFT ARM WOUND WAS CHANGED AT THIS TIME
[2018-10-13 04:46] LABS: BASOPHILS # (AUTO) 0.1 /CMM (0.0-0.2); BASOPHILS % (AUTO) 0.9 % (0.0-2.0); HEMATOCRIT 40 % (33-45); HEMOGLOBIN 13.4 g/dL (11.5-14.8); LYMPHOCYTES # (AUTO) 1.8 /CMM (0.8-4.8); MEAN CORPUSCULAR HGB CONC 34 g/dl (31.0-36.0); MEAN CORPUSCULAR VOLUME 96 fL (82-100); MONOCYTES # (AUTO) 1.4 /CMM (0.1-1.30); MONOCYTES % (AUTO) 13.9 % (2.0-12.0); NEUTROPHILS # (AUTO) 6.7 /CMM (1.8-8.9); NEUTROPHILS % (AUTO) 66.2 % (43.0-81.0); PLATELET COUNT (AUTO) 321 /CMM (150-450); RED BLOOD CELL COUNT(AUTO) 4.11 MIL/uL (4.0-5.2); WHITE BLOOD COUNT (AUTO) 10.2 K/uL (4.3-11.0)
[2018-10-13 04:54] LABS: CALCIUM, SERUM 7.2 mg/dL (8.5-10.1); MAGNESIUM 2.1 mg/dL (1.8-2.4)
[2018-10-13 05:16] LABS: POTASSIUM 2.7 mmol/L (3.5-5.1)
--- NOTE | 2018-10-13 05:20 | NUR ---
ICU/BARREL HEADER AM LABS WERE DRAWN FOR THIS PT. AWAIT FOR ANY ABNORMAL RESULTS.
--- NOTE | 2018-10-13 06:10 | NUR ---
ICU/TURBINE ROOM ATTENDANT PT HAD CRITICAL LAB VALUE OF POTASSIUM OF 2.7, RM WAS CALLED. GAVE ORDER FOR K-PHOS 40MEQ NOW AND IN 2 HRS THE NEXT DOSE, THEN THE LAST DOSE AT 1030. WITH A TOTAL OF 120MEQ.
[2018-10-13] MEDS ORDERED: POTASSIUM CHLORIDE 20 MEQ POWDER PACKET GT ONE ×3 (06:30→10:30)
--- NOTE | 2018-10-13 07:10 | NUR ---
RN INITIAL NOTES RECEIVED PT INTUBATED, ON VENT. NO RESPIRATORY DISTRESS NOTED. NO SOB NOTED. NO SIGNS OF PAIN NOTED. HOB ELEVATED. PT SEDATED, ON DIPRIVAN AT 15MCG/KG/MIN. WILL TITRATE ACCORDINGLY. OG CLAMPED. EILEEN PICC IN PLACE. IVF INFUSING. FC IN PLACE. NO HEMATURIA NOTED. BLE ELEVATED. WILL CONTINUE TO MONITOR.
[2018-10-13 07:52] LABS: ABG BASE EXCESS 5.6 mmol/L; ABG OXYGEN SATURATION 98.7 % (92.0-98.5); ABG PCO2 29.5 mmHg (35.0-45.0); ABG PH 7.576 (7.350-7.450); ABG PO2 121.6 mmHg (75.0-100.0); AaDO2 129.7 mmHg; COHb 0.9 % (0.5-1.5); MetHb 0.8 % (0.0-1.5); PEEP,BG 5 cm H2O; SITE, ABG Right Brachial; VT, ABG 500 mL
[2018-10-13] MEDS: LEVOTHYROXINE INJ 100 MCG VIAL IV SCH (08:14)
[2018-10-13] MEDS: PIPERACILLIN /TAZOBACTAM 3.375 G in IV D5W 100 ML IV SCH ×3 (08:14→23:18)
[2018-10-13] MEDS: GABAPENTIN 300 MG CAPSULE PO SCH ×3 (08:14→16:22)
[2018-10-13] MEDS: FAMOTIDINE/PF INJ 20 MG/2 ML VIAL IV SCH ×2 (08:15→21:15)
[2018-10-13] MEDS: AMLODIPINE BESYLATE 5 MG TABLET PO SCH (08:15)
[2018-10-13] MEDS: cetrizine 10 MG TABLET PO SCH (08:15)
[2018-10-13] MEDS: HEPARIN SODIUM, PORCINE 5000 UNITS/1 ML VIAL SQ SCH ×2 (08:16→21:19)
--- NOTE | 2018-10-13 08:55 | NUR ---
DECREASED FIO2 FROM 40 TO 30% DUE TO PAO2 121, SPO2 100% Addendum: 10/13/18 at 0856 by NHAN SORIA RT Amended: Links added.
[2018-10-13] MEDS: predniSONE 1 MG TABLET PO SCH (09:00)
--- NOTE | 2018-10-13 10:00 | NUR ---
RN NOTES 09 SEEN AND EXAMINED BY DR WRIGHT. PT OFF SEDATION. AWARE OF LAB VALUES, ABG AND CXR RESULT. PER MD, PUT PT ON CPAP MODE ONCE AWAKE. ALSO CLARIFIED PREDNISONE ORDER. WILL MONITOR 944 SEEN AND EXAMINED BY DR ABDALLA. AWARE OF LAB VALUES AND CXR RESULT. POTASSIUM 2.7, REPLACED. PT OFF SEDATION. PT MOVES TO PAIN. UNABLE TO FOLLOW COMMANDS YET. WILL CLOSELY MONITOR
[2018-10-13] MEDS: predniSONE 10 MG TABLET PO SCH (10:21)
[2018-10-13] MEDS: Sodium Acetate 100 MEQ in IV D5W 1,000 ML IV PRN (10:49)
[2018-10-13] MEDS: IV D5W 1,000 ML IV PRN ×2 (12:58→22:59)
[2018-10-13] MEDS: acetaZOLAMIDE 250 MG TABLET PO SCH (16:23)
--- NOTE | 2018-10-13 18:50 | NUR ---
RN CLOSING NOTES PT REMAINS INTUBATED, ON VENT. NO RESPIRATORY DISTRESS NOTED. NO SOB NOTED. KEPT HOB ELEVATED. NO SIGNS OF PAIN NOTED. TX PROVIDED ORDERED. KEPT CLEAN AND DRY. REPOSITIONED Q2. BLE ELEVATED. WILL ENDORSE FOR CONTINUITY OF CARE.
--- NOTE | 2018-10-13 19:45 | NUR ---
ICU/FRANCHISE SPECIALIST RECEIVED REPORT FROM DAY NURSE. SEE FLOWSHEET FOR ASSESSMENT, ALONG WITH ANY AND ALL SKIN ISSUES WHICH ARE ADDRESSED ALONG WITH THE EACH OF THE INTERVENTIONS TO THESE. PT IS CURRENTLY OFF SEDATION FROM THIS MORNING, TOLERATING THIS WELL. PT IS ON IVF WHICH ARE ADDRESSED ON THE IV SPREAD SHEET.PT WAS TURNED AND REPOSITIONED FOR COMFORT AND CARE. WILL CONTINUE TO MONITOR THIS PT CLOSELY.
--- NOTE | 2018-10-13 20:30 | NUR ---
ICU/SPRAY DRY OPERATOR PT CURRENTLY HAS A FEVER AT 100.2, COOLING MEASURES WERE DONE AT THIS TIME. WILL CONTINUE TP MONITOR THIS PT AND HER FEVER. AT THIS TIME THE RESP. AND WOUND CULTURE THUS FAR ARE NEGATIVE OF BACTERIA AND GROWTH.
--- NOTE | 2018-10-13 21:05 | NUR ---
ICU/FORMING AND ASSEMBLING SUPERVISOR ALONG WITH 2100 MEDICATION PT WAS GIVEN TYLENOL FOR TEMP OF 100.2 VIA O/GT. WILL CONTINUE TO MONITOR THIS PT AND TEMP. PT WAS TURNED AND REPOSITIONED FOR COMFORT AND CARE.
[2018-10-13] MEDS: buPROPion 75 MG TABLET PO SCH (22:00)
--- NOTE | 2018-10-13 22:13 | NUR ---
ICU/TRANSPORTATION ENGINEER PT 2200 DOSE OF WELLBUTRIN WAS HELD DUE TO PT IS CURRENTLY ORALLY INTUBATED. PT IS NOT ON SEDATION, HOWEVER PT REMAINS LETHARGIC, WILL RESUME WHEN PT IS LONGER SLEEPY AND LETHARGIC BUT RATHER ALERT AND MENTALLY STABLE. CHARGE NURSE MADE AWARE OF THIS.
--- NOTE | 2018-10-13 23:30 | NUR ---
ICU/PILE DRIVING NOZZLEMAN NOTIFIED CHARGE NURSE ABOUT THE FLACC PAIN SCALE OF 7/10. MORPHINE 2MG GIVEN IVP BY CHARGE NURSE. PT WAS TURNED AND REPOSITIONED FOR COMFORT AND CARE. WILL CONTINUE TO MONITOR THIS PT'S PAIN.
[2018-10-14] VITALS (39 sets, daily range): BP systolic 88–143; BP diastolic 54–99
--- NOTE | 2018-10-14 00:30 | NUR ---
ICU/NEUROPHYSIOLOGY TECH PHOTO DOCUMENTATION OF WOUNDS WERE DONE WITHIN 24 HRS. PHOTOS OF WOUNDS ARE CURRENT. WILL CONTINUE TO MONITOR THIS PT AND HER SKIN, WELL ADDRESS ANY SKIN ISSUES.
[2018-10-14] MEDS: Folic acid 1 MG in IV D5W 50 ML IV SCH (01:33)
--- NOTE | 2018-10-14 01:45 | NUR ---
ICU/SHAREPOINT ANALYST PT WAS GIVEN AM CARE ALONG WITH ORAL CARE. PT TOLERATED THIS WELL. PT REMAINS ON CURRENT VENT SETTINGS, WITH SATURATION AT 99-100%. PT WAS TURNED AND REPOSITIONED FOR COMFORT AND CARE. WILL CONTINUE TO MONITOR THIS PT. ALSO AT THIS TIME UPDATED PHOTO WOUND DOCUMENTATION.
[2018-10-14] MEDS: VANCOMYCIN 1 GM in IV D5W 250 ML IV SCH ×2 (02:05→14:47)
--- NOTE | 2018-10-14 03:15 | NUR ---
ICU/GERICARE AIDE NOTIFIED CHARGE NURSE ABOUT THE FLACC PAIN SCALE OF 7/10. MORPHINE 2MG GIVEN IVP BY CHARGE NURSE AT 0315. WILL CONTINUE TO MONITOR THIS PT'S PAIN ALSO PT WAS TURNED AND REPOSITIONED FOR COMFORT AND CARE. ALSO AT THIS TIME LEFT ARM WOUND WAS CHANGED AT THIS TIME
[2018-10-14] MEDS: MORPHINE SULFATE INJ 2 MG/ML DISP.SYRIN IV PRN ×2 (03:18→23:31)
--- NOTE | 2018-10-14 04:27 | NUR ---
ICU/FELT HAT STEAMER AM LABS WERE DRAWN FOR THIS PT. AWAIT FOR ANY ABNORMAL RESULTS.
[2018-10-14 04:39] LABS: BASOPHILS # (AUTO) 0.1 /CMM (0.0-0.2); BASOPHILS % (AUTO) 0.9 % (0.0-2.0); EOSINOPHILS % (AUTO) 2.7 % (0.0-6.0); HEMATOCRIT 38 % (33-45); HEMOGLOBIN 12.7 g/dL (11.5-14.8); LYMPHOCYTES # (AUTO) 1.8 /CMM (0.8-4.8); MEAN CORPUSCULAR HGB CONC 33 g/dl (31.0-36.0); MEAN CORPUSCULAR VOLUME 98 fL (82-100); MONOCYTES # (AUTO) 1.1 /CMM (0.1-1.30); MONOCYTES % (AUTO) 10.5 % (2.0-12.0); NEUTROPHILS # (AUTO) 7.4 /CMM (1.8-8.9); NEUTROPHILS % (AUTO) 68.9 % (43.0-81.0); PLATELET COUNT (AUTO) 311 /CMM (150-450); RED BLOOD CELL COUNT(AUTO) 3.92 MIL/uL (4.0-5.2); WHITE BLOOD COUNT (AUTO) 10.8 K/uL (4.3-11.0)
[2018-10-14 04:50] LABS: CALCIUM, SERUM 7.3 mg/dL (8.5-10.1); CREATININE 1.2 mg/dL (0.6-1.3)
[2018-10-14 04:58] LABS: POTASSIUM 2.8 mmol/L (3.5-5.1)
--- NOTE | 2018-10-14 05:23 | NUR ---
ICU/QUEEN PRODUCER CALLED DR ABDALLA ABOUT CRITICAL LAB OF POTASSIUM 2.8, WAITING FOR CALL BACK. CHARGE NURSE AWARE.
--- NOTE | 2018-10-14 05:43 | NUR ---
RT Pt received orally intubated w ett and on [facility] vent w charted settings. Vent is plugged into red outlet w ambubag @ hob. Alarms are set and audible. Pt ett secured and patent. Pt sx'd w no adverse reactions. No respiratory distress noted t/o shift. Addendum: 10/14/18 at 0546 by JUANITA SCHREIBER RT Amended: Links added.
--- NOTE | 2018-10-14 06:10 | NUR ---
ICU/INSPECTOR FABRIC CALLED DR ABDALLA ABOUT CRITICAL LAB OF POTASSIUM 2.8, WAITING FOR CALL BACK. CHARGE NURSE AWARE THAT MD ABDALLA HASN'T CALLED BACK.
--- NOTE | 2018-10-14 06:24 | NUR ---
ICU/INSIDE STEWARD/STEWARDESS STILL WAITING FOR DR ABDALLA TO CALL BACK ABOUT CRITICAL LAB VALUE OF POTASSIUM OF 2.8. CHARGE NURSE AWARE
--- NOTE | 2018-10-14 07:30 | NUR ---
INITIAL: RECEIVED PT INTUBATED, ON VENT. NO RESPIRATORY DISTRESS NOTED. NO SOB NOTED. NO SIGNS OF PAIN NOTED. HOB ELEVATED. PT SEDATED, OFF SEDATION. OG CLAMPED. EILEEN PICC IN PLACE. IVF INFUSING. FC IN PLACE. NO HEMATURIA NOTED. BLE ELEVATED. WILL CONTINUE TO MONITOR.
[2018-10-14] MEDS: LEVOTHYROXINE INJ 100 MCG VIAL IV SCH (07:47)
[2018-10-14] MEDS: PIPERACILLIN /TAZOBACTAM 3.375 G in IV D5W 100 ML IV SCH ×2 (08:30→15:56)
[2018-10-14] MEDS: GABAPENTIN 300 MG CAPSULE PO SCH ×3 (08:56→17:03)
[2018-10-14] MEDS: FAMOTIDINE/PF INJ 20 MG/2 ML VIAL IV SCH ×2 (08:57→22:00)
[2018-10-14] MEDS: POTASSIUM CHLORIDE 20 MEQ POWDER PACKET NG SCH ×3 (08:57→13:28)
[2018-10-14] MEDS: cetrizine 10 MG TABLET PO SCH (08:57)
[2018-10-14] MEDS: METOPROLOL TARTRATE 25 MG TABLET PO SCH ×2 (08:58→22:02)
[2018-10-14] MEDS: HEPARIN SODIUM, PORCINE 5000 UNITS/1 ML VIAL SQ SCH ×2 (08:59→21:58)
[2018-10-14] MEDS ORDERED: Z GUARD REMEDY 2 OZ OINT TP PRN (09:00)
[2018-10-14] MEDS ORDERED: AMLODIPINE BESYLATE 5 MG TABLET PO SCH ×2 (09:00)
[2018-10-14] MEDS: Z GUARD REMEDY 2 OZ OINT TP SCH (09:02)
[2018-10-14] MEDS: acetaZOLAMIDE 250 MG TABLET PO SCH ×2 (09:02→17:04)
[2018-10-14] MEDS: predniSONE 10 MG TABLET PO SCH (09:04)
[2018-10-14] MEDS: IV D5W 1,000 ML IV PRN ×2 (09:08→17:50)
[2018-10-14 15:10] LABS: ABG BASE EXCESS -6.4 mmol/L; ABG OXYGEN SATURATION 98.9 % (92.0-98.5); ABG PCO2 17.5 mmHg (35.0-45.0); ABG PH 7.516 (7.350-7.450); ABG PO2 163.5 mmHg (75.0-100.0); AaDO2 29.8 mmHg; COHb 0.6 % (0.5-1.5); MetHb 0.6 % (0.0-1.5); O2Hb 97.7 % (94.0-97.0); SITE, ABG Right Radial; VT, ABG 500 mL
--- NOTE | 2018-10-14 19:30 | NUR ---
RN INITIAL NOTES: RECEIVED PT IN BED INTUBATED, ON VENT. NO RESPIRATORY DISTRESS, NO SOB, NO SIGNS OF PAIN NOTED AT THIS TIME .HOB ELEVATED AT ALL TIME. PT IS LETHARGIC OFF SEDATION. OG TUBE IS IN PLACE CLAMPED, CHECKED FOR POSITIVE PLACEMENT. EILEEN PICC LINE IS IN PLACE. IVF INFUSING ORDERED. FC IN PLACE DRAINING YELLOW URINE ON GRAVITY. NO HEMATURIA NOTED. BLE ELEVATED. PATIENT HAS SOFT WRIST RESTRAINTS IN PLACE. ALL SAFETY MEASURES AND CHECKS ARE IMPLEMENTED. WILL CONTINUE TO MONITOR.
--- NOTE | 2018-10-14 20:29 | NUR ---
PT RECEIVED INTUBATED 7.0 ETT SECURED AT 21CM AT THE LIP. PT TOLERATING VENT SETTINGS. SX'D FOR MOD AMT OF THICK PALE SECRETIONS. VENT ALARMS SET AND AUDIBLE. AMBU BAG AT BEDSIDE. WILL CONTINUE TO MONITOR. Addendum: 10/14/18 at 2031 by MAREN SIMS RT Amended: Links added.
[2018-10-14] MEDS: ACETAMINOPHEN 650 MG/20.3 ML UDC NG PRN (21:56)
[2018-10-15] VITALS (35 sets, daily range): BP systolic 103–160; BP diastolic 61–97
[2018-10-15] MEDS: PIPERACILLIN /TAZOBACTAM 3.375 G in IV D5W 100 ML IV SCH ×4 (00:21→23:00)
[2018-10-15] MEDS: Folic acid 1 MG in IV D5W 50 ML IV SCH (02:00)
[2018-10-15] MEDS: MORPHINE SULFATE INJ 2 MG/ML DISP.SYRIN IV PRN (02:15)
[2018-10-15] MEDS: VANCOMYCIN 1 GM in IV D5W 250 ML IV SCH (03:14)
[2018-10-15] MEDS: IV D5W 1,000 ML IV PRN (04:05)
[2018-10-15 04:37] LABS: CALCIUM, SERUM 7.7 mg/dL (8.5-10.1); CREATININE 1.2 mg/dL (0.6-1.3); MAGNESIUM 2.2 mg/dL (1.8-2.4); POTASSIUM 3.4 mmol/L (3.5-5.1)
--- NOTE | 2018-10-15 05:35 | NUR ---
RN NOTES PATIENT'S B/P IS 151/87 AND LABETALOL 10MG<2ML> IV HAS BEEN ADMINISTERED PRN. WILL RECHECK B/P IN 40MIN. AGAIN.WILL MONITOR PATIENT CLOSELY.
[2018-10-15] MEDS: ACETAMINOPHEN 650 MG/20.3 ML UDC NG PRN ×3 (05:53→23:51)
--- NOTE | 2018-10-15 06:05 | NUR ---
rn notes patient's b/p has been rechecked it's 137/84 with HR-101. WILL CONTINUE TO MONITOR PATIENT CLOSELY.
--- NOTE | 2018-10-15 07:27 | NUR ---
RN NOTES PATIENT IS STABLE CONDITION. ON VENT TOLERATING SETTINGS WELL , NO ACUTE CHANGES DURING MY SHIFT. RIGHT UPPER ARM PICC LINE IS IN PLACE WITH IV FLUIDS AE ORDERED. ALL NEEDS ARE ATTENDED, ALL SAFETY MEASURES ARE IMPLEMENTED. WILL INDORSE TO AM RN FOR GRIPPER MACHINE OPERATOR.
--- NOTE | 2018-10-15 07:30 | NUR ---
DIGITAL STRATEGY MANAGER INITIAL NOTES PT RECEIVED INTUBATED ON MECHANICAL VENT. STT SECURED AT 21CM AT THE LIP. VENT SETTINGS CHECKED FOR ACCURACY (AC 16, TV 450, FIO2 30%, PEEP 5). PT TOLERATING VENT SETTINGS WELL. NO SOB OR ACUTE SIGNS OF DISTRESS NOTED. PT OFF SEDATION AND NOTED TO BE LETHARGIC. PT UNABLE TO FOLLOW SIMPLE COMMANDS WHEN PROMPTED. VSS. PT NOTED TO BE SINUS TACH ON THE TELE MONITOR WITH A HR OF 102. RIGHT UPPER ARM PICC LINE NOTED TO BE C/D/I. BLOOD RETURN NOTED. CAPPS CATHETER C/D/I AND DRAINING TO GRAVITY. BILATERAL SOFT WRIST RESTRAINTS NOTED PT WAS SEEN TO BE PULLING AT INVASIVE LINES. GOOD PERIPHERAL PULSES AND CAP REFILL NOTED. BED IN LOW LOCKED POSITION, SIDE RAILS UP X2, WILL CONTINUE TO MONITOR.
[2018-10-15] MEDS: LEVOTHYROXINE INJ 100 MCG VIAL IV SCH (08:29)
[2018-10-15] MEDS: Z GUARD REMEDY 2 OZ OINT TP SCH (08:29)
[2018-10-15] MEDS: HEPARIN SODIUM, PORCINE 5000 UNITS/1 ML VIAL SQ SCH ×2 (08:30→20:39)
[2018-10-15] MEDS ORDERED: POTASSIUM CHLORIDE 20 MEQ TAB.PRT.SR PO ONE (08:30)
--- NOTE | 2018-10-15 08:30 | NUR ---
EDGE MOLDER NOTES: BLOOD CX F/U LAB CALLED IN REGARDS TO BLOOD CX WHICH WAS COLLECTED ON 10/11. PER POLICE AND FIRE DISPATCHER, THE MACHINES WERE DOWN HOWEVER, PRELIM RESULTS SHOULD COME BACK SOME TIME TOMORROW
[2018-10-15] MEDS: acetaZOLAMIDE 250 MG TABLET PO SCH (08:31)
[2018-10-15] MEDS: FAMOTIDINE/PF INJ 20 MG/2 ML VIAL IV SCH ×2 (08:31→20:38)
[2018-10-15] MEDS: predniSONE 10 MG TABLET PO SCH (08:32)
[2018-10-15] MEDS: METOPROLOL TARTRATE 25 MG TABLET PO SCH ×2 (08:34→20:38)
[2018-10-15] MEDS: AMLODIPINE BESYLATE 2.5 MG TABLET PO SCH (08:38)
[2018-10-15] MEDS: GABAPENTIN 100 MG CAPSULE PO SCH ×3 (08:38→16:00)
[2018-10-15 09:22] LABS: ABG BASE EXCESS -9.6 mmol/L; ABG OXYGEN SATURATION 98.5 % (92.0-98.5); ABG PCO2 23.1 mmHg (35.0-45.0); ABG PH 7.383 (7.350-7.450); ABG PO2 132.5 mmHg (75.0-100.0); AaDO2 54.3 mmHg; COHb 0.4 % (0.5-1.5); MetHb 0.6 % (0.0-1.5); O2Hb 97.5 % (94.0-97.0); PEEP,BG 5 cm H2O; SITE, ABG Left Radial; VENT MODE, BG SIMV PS 15; VT, ABG 450 mL
--- NOTE | 2018-10-15 10:19 | NUR ---
KILN TESTER NOTES: WEANING TRAIL 0815 PT PLACED ON SIMV MODE. PT TOLERATING SETTINGS WELL. VSS. HOWEVER PT REMAINS LETHARGIC 1019 DR. BROOKE AT BEDSIDE. RESULTS OF ABG REVIEWED WITH PT. NO NEED FOR BICARB AT THIS TIME PER MD. PT PLACED BACK ON AC MODE PER MD ORDER UNTIL SHE IS BREAUX ALERT.
[2018-10-15] MEDS: CITRIC ACID/SODIUM CITRATE (BICITRA)15 ML UDC PO SCH ×4 (10:39→20:38)
[2018-10-15] MEDS: Potassium Chloride 20 MEQ in IV D5/0.45 NACL 1,000 ML IV PRN ×2 (10:39→20:49)
[2018-10-15 11:18] LABS: SALICYLATE 1.2 mg/dL (2.8-20.0)
--- NOTE | 2018-10-15 15:00 | NUR ---
REPRODUCTIVE ENDOCRINOLOGIST NOTES: VANCO ADMINISTRATION 1500 VANCO DOSE HELD PT'S TROUGH IS 33. PHARMACIST MADE AWARE
--- NOTE | 2018-10-15 16:20 | NUR ---
TIMBER POISONER NOTES: MD ORDER PT NOTED TO HAVE EMESIS. TELEPHONE ORDER OBTAINED FROM DR. ABDALLA FOR ZOFRAN 4MG Q4HR PRN
[2018-10-15] MEDS: ONDANSETRON HCL/PF 4 MG/2 ML VIAL IV PRN (17:16)
--- NOTE | 2018-10-15 17:23 | NUR ---
RT END OF THE SHIFT REPORT; PT. 63 Y OLD FEMALE REC. 0700 AM SOME WHAT RESPONSIVE ORALLY INTUBATED ETT # 7.0 @ 21 CM LIP LINE. ON VENT WITH NOTED SETTINGS. @ 0815 AM PLACED ON SIMVE MODE AND [place]. WELL. ABG DONE PER DR. BROOKE ORDER, NO CHANGES ON VENT. DUE TO MENTAL STATUS @1025 AM . PT. PLACED ON AC MODE SETTINGS, ALARMS ARE SET AND EQUAL CHEST RISE NOTED. GROUND WATER CONTRACTOR DONE, HME CHANGED T/O DAY PT. SUX'D FOR MOD. AMT OF THIN WHITE SECRETIONS. PT. REMAIN STABLE ON VENT. NOTE: PT. MORE RESPONSIVE AND FOLLOWING COMMAND WITH RT IN FARSI SPEAKING (RN AND FAMILY MEMBERS AT THE BEDSIDE) AMBU BAG REMAIN ON THE BEDSIDE. VENT PLUGGED INTO RED OUTLET AND CONTINUE TO MONITOR PT. REPORT WILL BE PASSED TO PM SHIFT. Addendum: 10/15/18 at 1729 by BONITA ESTEVEZ RT Amended: Links added.
--- NOTE | 2018-10-15 18:49 | NUR ---
PHARMACIST IN CHARGE OWNER CLOSING NOTES PT REMAIN STABLE ON FULL VENT SUPPORT AND OFF SEDATION. ALL NEEDS WERE MET DURING SHIFT AND ORDERS CARRIED OUT ACCORDINGLY. ALL DUE MEDS GIVEN. PRN CARE RENDERED. PT REPOSITIONED AND TURNED PER PROTOCOL. VSS AT THIS TIME. CAPPS CATHETER REMAINS C/D/I. PICC LINE REMAINS INTACT AND PATENT. PT TOLERATING KCL INFUSION AND ZOSYN INFUSION WELL. SAFETY MEASURES REMAIN IN PLACE. WILL ENDORSE TO NIGHTSHIFT RN FOR [place]
--- NOTE | 2018-10-15 19:32 | NUR ---
RN NOTE: RECEIVED PT ON BED LETHARGIC WITH NO APPARENT DISTRESS NOTED. NO FACIAL GRIMACING OR ANY SIGNS OF PAIN NOTED. ON VENT, SETTINGS ORDERED. NO SOB NOTED. OG TUBE CLAMPED AND IN PLACED. CAPPS CATH INTACT AND PATENT, DRAINING WELL. RIGHT UPPER ARM PICC LINE INTACT AND PATENT, IVF INFUSING WELL. KEPT CLEAN, DRY AND COMFORTABLE. SAFETY AND FALL PRECAUTIONS OBSERVED AND MAINTAINED. WILL CONTINUE TO MONITOR PT.
--- NOTE | 2018-10-15 19:47 | NUR ---
PT RECEIVED INTUBATED 7.0 ETT SECURED AT 21CM AT THE LIP. PT TOLERATING VENT SETTINGS. SX'D FOR MOD AMT OF THICK PALE SECRETIONS. VENT ALARMS SET AND AUDIBLE. AMBU BAG AT BEDSIDE. WILL CONTINUE TO MONITOR. Addendum: 10/15/18 at 1948 by MAREN SIMS RT Amended: Links added.
[2018-10-16] VITALS (30 sets, daily range): BP systolic 117–150; BP diastolic 65–86
[2018-10-16 04:51] LABS: CALCIUM, SERUM 7.3 mg/dL (8.5-10.1); CREATININE 1.2 mg/dL (0.6-1.3); POTASSIUM 3.6 mmol/L (3.5-5.1)
[2018-10-16] MEDS: Potassium Chloride 20 MEQ in IV D5/0.45 NACL 1,000 ML IV PRN ×2 (06:15→16:45)
--- NOTE | 2018-10-16 06:26 | NUR ---
RN NOTE: NO CHANGES NOTED THROUGHOUT THE SHIFT. NO APPARENT DISTRESS NOTED AT THIS TIME. NO FACIAL GRIMACING OR ANY SIGNS OF PAIN NOTED. ON MECH VENT, SETTINGS ORDERED. SATURATING WELL. OG TUBE INTACT AND IN PLACED. CAPPS CATH INTACT AND PATENT, DRAINED 1200ML OF URINE OUTPUT. KEPT CLEAN, DRY AND COMFORTABLE. SAFETY AND FALL PRECAUTIONS OBSERVED AND MAINTAINED. WILL ENDORSE TO DAY SHIFT RN FOR CONTINUITY OF CARE.
--- NOTE | 2018-10-16 07:15 | NUR ---
RECEIVED PATIENT FROM RN FOR [facility]. PATIENT INTUBATED 7.0 WITH VENT SETTINGS PER MD ORDER AND TOLERATING WELL. NO SOB, DIFFICULTY BREATHING OR PAIN NOTED. PATIENT FARSI SPEAKING, ALERT AND AWAKE FOLLOWING COMMANDS. ABLE TO MOVE ALL EXTREMITIES WITHOUT COMPLICATIONS. BILATERAL WRIST RESTRAINTS IN PLACE PATIENT WILL ATTEMPT TO PULL AT ETT. CAPPS CATH IN PLACE AND DRAINING TO GRAVITY. PATIENT IV SITE C/D/I/P WITH GOOD BLOOD RETURN AND IVF RUNNING PER MD ORDER. PATIENT PENDING SIMV TRIAL AND PER RN PATIENT APPEARS MORE ALERT AND AWAKE.
[2018-10-16] MEDS: LEVOTHYROXINE INJ 100 MCG VIAL IV SCH (07:32)
[2018-10-16] MEDS: PIPERACILLIN /TAZOBACTAM 3.375 G in IV D5W 100 ML IV SCH (07:32)
--- NOTE | 2018-10-16 07:50 | NUR ---
PATIENT ON SIMV. TOLERATING WELL AT THIS TIME. WILL MONITOR.100% SATURATION. RESPIRATIONS EQUAL AND UNLABORED
--- NOTE | 2018-10-16 08:00 | NUR ---
DR ABDALLA AT BEDSIDE AND UPDATED ON PATIENT CONDITION, LABS, VS. PER D/C ZOSYN ANTIBIOTIC AND CONTINUE WITH ONLY VANCO.
[2018-10-16] MEDS: FAMOTIDINE/PF INJ 20 MG/2 ML VIAL IV SCH ×2 (08:02→20:28)
[2018-10-16] MEDS: CITRIC ACID/SODIUM CITRATE (BICITRA)15 ML UDC PO SCH ×4 (08:02→20:30)
--- NOTE | 2018-10-16 08:02 | NUR ---
PATIENT REC'D ORALLY INTUBATED ON MECH VENT. PER MD ORDER PATIENT PLACED ON SIMV MODE AND ALARMS CHECKED + AUDIBLE. SUCTIONED WITH SMALL AMT PALE SEMITHICK SECRETIONS. B/S DIM. OBREGON BAG AT HOB Addendum: 10/16/18 at 0803 by NUHA HENDRIX RT Amended: Links added.
[2018-10-16] MEDS: METOPROLOL TARTRATE 25 MG TABLET PO SCH ×2 (08:03→20:30)
[2018-10-16] MEDS: Z GUARD REMEDY 2 OZ OINT TP SCH (08:03)
[2018-10-16] MEDS: FOLIC ACID 1 MG TABLET PO SCH (08:03)
[2018-10-16] MEDS: AMLODIPINE BESYLATE 2.5 MG TABLET PO SCH (08:03)
[2018-10-16] MEDS: predniSONE 10 MG TABLET PO SCH (08:06)
[2018-10-16] MEDS: HEPARIN SODIUM, PORCINE 5000 UNITS/1 ML VIAL SQ SCH ×2 (08:08→20:29)
[2018-10-16 08:35] LABS: ABG BASE EXCESS -10.4 mmol/L; ABG OXYGEN SATURATION 98.7 % (92.0-98.5); ABG PCO2 20.8 mmHg (35.0-45.0); ABG PH 7.393 (7.350-7.450); ABG PO2 165.1 mmHg (75.0-100.0); AaDO2 24.4 mmHg; COHb 0.6 % (0.5-1.5); MetHb 0.5 % (0.0-1.5); O2Hb 97.6 % (94.0-97.0); SITE, ABG Right Femoral
--- NOTE | 2018-10-16 08:40 | NUR ---
dr barrett at bedside. updated on patient condition, labs, vs and current abg. no new orders at this time.
[2018-10-16] MEDS ORDERED: DC PROPOFOL WHEN EXTUBATED XX PRN (09:00)
[2018-10-16] MEDS: VANCOMYCIN 1 GM in IV D5W 250 ML IV SCH (09:24)
[2018-10-16] MEDS: ACETAMINOPHEN 650 MG/20.3 ML UDC NG PRN (09:24)
--- NOTE | 2018-10-16 11:15 | NUR ---
PATIENT SUCCESSFULLY EXTUBATED ON LOW FLOW NASAL CANNULA. 100% 4L
--- NOTE | 2018-10-16 11:20 | NUR ---
PATIENT EXTUBATED AND PLACED ON SUPPLEMENTAL O2 KINGA WELL. LUCIANO MARTINEZ AT BED. NO SOB AT THIS TIME.
[2018-10-16 12:21] LABS: ABG BASE EXCESS -10.9 mmol/L; ABG OXYGEN SATURATION 98.8 % (92.0-98.5); ABG PCO2 23.9 mmHg (35.0-45.0); ABG PH 7.349 (7.350-7.450); ABG PO2 189.9 mmHg (75.0-100.0); AaDO2 39.1 mmHg; COHb 0.4 % (0.5-1.5); MetHb 0.5 % (0.0-1.5); O2Hb 97.9 % (94.0-97.0); SITE, ABG Right Radial; VENT MODE, BG 4L NC
--- NOTE | 2018-10-16 14:15 | NUR ---
PATIENT UNABLE TO SWALLOW PO FLUIDS AT THIS TIME. SLIGHT DIFFICULTY IN KEEPING HEAD UP ON HER OWN AND DIFFICULTIES AT TIMES IN SWALLOWING SALIVA. WILL ORDER SWALLOW EVAL
--- NOTE | 2018-10-16 18:26 | NUR ---
PATIENT MORE ALERT AND AWAKE. ASKING QUESTIONS ABOUT HER HOSPITAL STAY;STILL A BIT CONFUSED. SPEAKS JAPANESE. AT BEDSIDE. PATIENT REFUSING PO ATTEMPTS AND SWALLOW EVAL AT THIS TIME. PENDING SWALLOW EVAL. PATIENT IV SITE C/D/I/P WITH IVF RUNNING PER MD ORDER. TOLERATING LOW FLOW 02 NC SATURATION 100%. ABLE TO CLEAR AIRWAY GAG AND COUGH REFLEXES PRESENT. SKIN, SAFETY, ASPIRATION PRECAUTIONS IN PLACE AND MONITORED.
--- NOTE | 2018-10-16 19:30 | NUR ---
LOCK AND DAM REPAIRER NOTE PT RECEIVED AWAKE AND IN BED. ALERT TO NAME AND PLACE. APPEARS MORE AWAKE AND ANSWERING QUESTIONS MORE APPROPRIATELY. NO DISTRESS NOTED. HOB ELEVATED AND ON ASPIRATION PRECAUTIONS. ON 2L OF O2 VIA NC AND SATURATING WELL. EILEEN PICC CLEAN AND DRY WITH FLUIDS INFUSING. CAPPS CATHETER IN PLACE AND DRAINING BY GRAVITY. CALL LIGHT WITHIN REACH. BED ALARM ENABLED. WILL CONTINUE TO MONITOR.
--- NOTE | 2018-10-16 21:00 | NUR ---
SENIOR QUALITY CONTROL TECHNICIAN NOTE AT BEDSIDE.
--- NOTE | 2018-10-16 22:00 | NUR ---
QUALIFICATIONS EXAMINER NOTE REMAINS AT BEDSIDE. PERFORMED SWALLOW EVALUATION AT BEDSIDE. PT SWALLOWED WATER WITHOUT DIFFICULTY AND NO COUGHING NOTED. SWALLOW EVALUATION ORDERED FOR TOMORROW MORNING. WILL MONITOR.
[2018-10-17] VITALS (16 sets, daily range): BP systolic 106–169; BP diastolic 37–121
[2018-10-17] MEDS: Potassium Chloride 20 MEQ in IV D5/0.45 NACL 1,000 ML IV PRN ×3 (03:13→23:32)
[2018-10-17 04:15] LABS: BASOPHILS % (AUTO) 0.4 % (0.0-2.0); EOSINOPHILS % (AUTO) 2.6 % (0.0-6.0); HEMATOCRIT 37 % (33-45); HEMOGLOBIN 12.2 g/dL (11.5-14.8); LYMPHOCYTES # (AUTO) 1.9 /CMM (0.8-4.8); LYMPHOCYTES % (AUTO) 22.3 % (20.0-44.0); MEAN CORPUSCULAR HGB CONC 34 g/dl (31.0-36.0); MEAN CORPUSCULAR VOLUME 101 fL (82-100); MONOCYTES # (AUTO) 1.3 /CMM (0.1-1.30); MONOCYTES % (AUTO) 14.6 % (2.0-12.0); NEUTROPHILS # (AUTO) 5.2 /CMM (1.8-8.9); NEUTROPHILS % (AUTO) 60.1 % (43.0-81.0); PLATELET COUNT (AUTO) 436 /CMM (150-450); RED BLOOD CELL COUNT(AUTO) 3.62 MIL/uL (4.0-5.2); WHITE BLOOD COUNT (AUTO) 8.7 K/uL (4.3-11.0)
[2018-10-17 04:28] LABS: CALCIUM, SERUM 7.9 mg/dL (8.5-10.1); CREATININE 0.9 mg/dL (0.6-1.3); POTASSIUM 3.3 mmol/L (3.5-5.1)
--- NOTE | 2018-10-17 07:29 | NUR ---
STARCHMAKER NOTE PT REMAINED STABLE DURING SHIFT. NO ACUTE DISTRESS NOTED. ALL NEEDS ATTENDED TO PROMPTLY. KEPT CLEAN AND DRY. SPOKE WITH DR ABDALLA WITH ORDERS TO GIVE NORCO 5/325 Q4H PO PRN FOR PAIN NEEDED. ORDERS NOTED AND CARRIED OUT. WILL ENDORSE TO NEXT SHIFT FOR CONTINUITY OF CARE.
--- NOTE | 2018-10-17 07:30 | NUR ---
RECEIVED REPORT FROM RN. PATIENT AWAKE AND ALERT FOLLOWING COMMANDS. MORE ALERT THAN YESTERDAY A/OX2. IV SITE C/D/I/P WITH IVF RUNNING PER ORDER. CAPPS CATH TO GRAVITY INTACT DRAINING CLEAR YELLOW URINE. TOLERATING NASAL CANNULA NO SOB, DIFFICULTY BREATHING. SAFETY, SKIN, ASPIRATION PRECAUTIONS IN PLACE AND WILL MONITOR.
[2018-10-17] MEDS ORDERED: POTASSIUM CHLORIDE 20 MEQ TAB.PRT.SR PO ONE (08:30)
--- NOTE | 2018-10-17 08:50 | NUR ---
Dr. Cisneros at bedside, updated on patient condition, labs, vitals. Per OK to downgrade to Fair value
[2018-10-17] MEDS: VANCOMYCIN 1 GM in IV D5W 250 ML IV SCH (08:59)
[2018-10-17] MEDS: FOLIC ACID 1 MG TABLET PO SCH (08:59)
[2018-10-17] MEDS: predniSONE 10 MG TABLET PO SCH (09:00)
[2018-10-17] MEDS: CITRIC ACID/SODIUM CITRATE (BICITRA)15 ML UDC PO SCH (09:00)
[2018-10-17] MEDS: AMLODIPINE BESYLATE 2.5 MG TABLET PO SCH (09:04)
[2018-10-17] MEDS: METOPROLOL TARTRATE 25 MG TABLET PO SCH ×2 (09:04→21:29)
[2018-10-17] MEDS: Z GUARD REMEDY 2 OZ OINT TP SCH (09:05)
[2018-10-17] MEDS: HEPARIN SODIUM, PORCINE 5000 UNITS/1 ML VIAL SQ SCH ×2 (09:13→21:30)
[2018-10-17] MEDS: HYDROCODONE/APAP 5/325MG 1 EACH TABLET PO PRN ×3 (09:14→23:30)
[2018-10-17 09:55] LABS: ABG BASE EXCESS -8.9 mmol/L; ABG OXYGEN SATURATION 97.4 % (92.0-98.5); ABG PCO2 22.1 mmHg (35.0-45.0); ABG PH 7.411 (7.350-7.450); ABG PO2 93.3 mmHg (75.0-100.0); COHb 0.3 % (0.5-1.5); MetHb 0.5 % (0.0-1.5); O2Hb 96.6 % (94.0-97.0); SITE, ABG Right Brachial; VENT MODE, BG ROOM AIR
--- NOTE | 2018-10-17 11:04 | NUR ---
REPORT GIVEN TO LUCIANO SAUNDERS FOR [facility]. PATIENT STABLE FOR TRANSFER
--- NOTE | 2018-10-17 11:05 | NUR ---
patient transferred to room 112-2 stable. care endorsed to stephen lakhani for polly
--- NOTE | 2018-10-17 11:07 | NUR ---
CALLED PATIENT TO NOTIFIED OF TRANSFER. PATIENT MEDSURG ROOM 112
--- NOTE | 2018-10-17 11:45 | NUR ---
MS RN NOTES PT TRANSFERRED TO [facility] FROM ICU. NO S/SX OF DISTRESS NOTED. VS TAKEN. ORIENTED TO ROOM/CALL LIGHT. BED IN LOCKED/LOWEST POSITION. WILL CONT TO MONITOR.
[2018-10-17] MEDS: ONDANSETRON HCL/PF 4 MG/2 ML VIAL IV PRN (13:10)
--- NOTE | 2018-10-17 13:45 | NUR ---
MS RN NOTES PT'S TALKED TO DR ABDALLA REGARDING POC.
[2018-10-17 15:18] LABS: APPEARANCE,URINE CLEAR (CLEAR); BILIRUBIN,URINE NEGATIVE (NEGATIVE); BLOOD, URINE 2+ Ery/uL (NEGATIVE); COLOR,URINE YELLOW (YELLOW); KETONES,URINE NEGATIVE (NEGATIVE); LEUKOCYTE ESTERASE ,URINE NEGATIVE (NEGATIVE); NITRITE, URINE NEGATIVE (NEGATIVE); PH,URINE 6.5 (5.0-8.0); PROTEIN,URINE NEGATIVE (NEGATIVE); UGLUCOSE NEGATIVE (NEGATIVE); UROBILINOGEN,URINE 0.2 EU/dL (0.2)
[2018-10-17 15:39] LABS: CREATININE, URINE 24.6 MG/DL (30.0-125.0)
[2018-10-17 15:42] LABS: BACTERIA,URINE Rare /HPF (None Seen); SQUAMOUS EPITHELIAL CELL,UR Rare /HPF (None Seen); WBC,URINE 0-2 /HPF (0-3)
[2018-10-17 17:01] LABS: CHLORIDE,URINE RANDOM 149 mmol/L (55-125); POTASSIUM RNDM,URINE 30 mmol/L (25-125)
--- NOTE | 2018-10-17 19:00 | NUR ---
MS RN END OF SHIFT NOTES REPORTED TO PM NURSE FOR [place]. NO S/SX OF DISTRESS NOTED. FAMILY AT BEDSIDE. ALL NEEDS ATTENDED TO.
--- NOTE | 2018-10-17 20:00 | NUR ---
RN INITIAL NOTES RECEIVED PT IN BED, AT BEDSIDE. PATIENT AWAKE AND ALERT FOLLOWING COMMANDS.IV SITE C/D/I/P WITH IVF RUNNING PER ORDER. CAPPS CATH TO GRAVITY INTACT DRAINING CLEAR YELLOW URINE. PT ON ROOM AIR, NO DIFFICULTY BREATHING. SAFETY, SKIN, ASPIRATION PRECAUTIONS IN PLACE. BED IN LOW LOCKED POSITION CALL LIGHT WITH IN REACH. WILL CONT TO MONITOR.
[2018-10-17] MEDS ORDERED: buPROPion 75 MG TABLET PO SCH (22:00)
[2018-10-18 04:00] VITALS: BP 132/73
--- NOTE | 2018-10-18 06:36 | NUR ---
RN CLOSING NOTES NO SIGNIFICANT CHANGE IN PTS CONDITION. NO S/SX OF DISTRESS NOTED. ALL NEEDS ATTENDED TO. WILL ENDORSE TO AM RN.
[2018-10-18 08:00] VITALS: BP 164/79
[2018-10-18] MEDS ORDERED: CIPR-262 PO (09:16)
[2018-10-18] MEDS ORDERED: VANC1PLA9 IV (09:18)
[2018-10-18] MEDS: Z GUARD REMEDY 2 OZ OINT TP SCH (09:19)
[2018-10-18] MEDS: FOLIC ACID 1 MG TABLET PO SCH (09:26)
[2018-10-18] MEDS: AMLODIPINE BESYLATE 2.5 MG TABLET PO SCH (09:26)
[2018-10-18] MEDS: predniSONE 10 MG TABLET PO SCH (09:26)
[2018-10-18] MEDS: METOPROLOL TARTRATE 25 MG TABLET PO SCH (09:27)
[2018-10-18] MEDS: HEPARIN SODIUM, PORCINE 5000 UNITS/1 ML VIAL SQ SCH (09:28)
[2018-10-18 09:29] LABS: BASOPHILS # (AUTO) 0.1 /CMM (0.0-0.2); BASOPHILS % (AUTO) 1.4 % (0.0-2.0); CALCIUM, SERUM 8.3 mg/dL (8.5-10.1); CREATININE 0.8 mg/dL (0.6-1.3); EOSINOPHILS % (AUTO) 3.4 % (0.0-6.0); HEMATOCRIT 36 % (33-45); HEMOGLOBIN 12.1 g/dL (11.5-14.8); LYMPHOCYTES % (AUTO) 24.9 % (20.0-44.0); MEAN CORPUSCULAR HGB CONC 34 g/dl (31.0-36.0); MEAN CORPUSCULAR VOLUME 97 fL (82-100); MONOCYTES # (AUTO) 1.2 /CMM (0.1-1.30); NEUTROPHILS # (AUTO) 4.3 /CMM (1.8-8.9); NEUTROPHILS % (AUTO) 55.3 % (43.0-81.0); PLATELET COUNT (AUTO) 530 /CMM (150-450); POTASSIUM 3.4 mmol/L (3.5-5.1); RED BLOOD CELL COUNT(AUTO) 3.72 MIL/uL (4.0-5.2); WHITE BLOOD COUNT (AUTO) 7.9 K/uL (4.3-11.0)
[2018-10-18] MEDS: VANCOMYCIN 1 GM in IV D5W 250 ML IV SCH (09:52)
[2018-10-18] MEDS: Potassium Chloride 20 MEQ in IV D5/0.45 NACL 1,000 ML IV PRN (09:53)
[2018-10-18] MEDS: HYDROCODONE/APAP 5/325MG 1 EACH TABLET PO PRN ×2 (10:05→17:29)
[2018-10-18] MEDS ORDERED: POTASSIUM CHLORIDE 20 MEQ TAB.PRT.SR PO ONE (15:30)
[2018-10-18 16:00] VITALS: BP 131/75
--- NOTE | 2018-10-18 19:30 | NUR ---
RN CLOSING/DISCHARGE NOTES PATIENT STABLE. PATIENT AWAKE AND ALERT FOLLOWING COMMANDS. IV SITE C/D/I/P. CAPPS CATH DISCONTINUED. PT ON ROOM AIR, NO DIFFICULTY BREATHING. SAFETY, SKIN, ASPIRATION PRECAUTIONS IN PLACED. ALL MD ORDERS ATTENDED. ALL PT NEEDS MET. EXIT CARE DONE. ENDORSED TO COUNSELING SERVICES DIRECTOR NURSE FOR EL[facility].
== END 2018-10-18 20:29 | disposition home health service (06) | DRG 349 ==
LOC: ER 21:12 → ICU 10-12 01:16 → MEDSG1 10-17 11:25
PROVIDERS: ADMIT Internal Medicine; ATTEND Internal Medicine
PROC: 0BH17EZ Insertion of Endotracheal Airway into Trachea, Via Natural or Artificial Opening (ICD-10-PCS; principal; 2018-10-12)
PROC: 02HV33Z Insertion of Infusion Device into Superior Vena Cava, Percutaneous Approach (ICD-10-PCS; principal; 2018-10-12)
PROC: B548ZZA Ultrasonography of Superior Vena Cava, Guidance (ICD-10-PCS; principal; 2018-10-12)
PROC: 5A1945Z Respiratory Ventilation, 24-96 Consecutive Hours (ICD-10-PCS; principal; 2018-10-12)
DX: T84.59XA Infection and inflammatory reaction due to other internal joint prosthesis, initial encounter (principal); J96.01 Acute respiratory failure with hypoxia; A41.9 Sepsis, unspecified organism; G93.41 Metabolic encephalopathy; E87.4 Mixed disorder of acid-base balance; E83.42 Hypomagnesemia; E86.0 Dehydration; Z79.899 Other long term (current) drug therapy; E03.9 Hypothyroidism, unspecified; Y83.9 Surgical procedure, unspecified as the cause of abnormal reaction of the patient, or of later complication, without mention of misadventure at the time of the procedure; Y92.9 Unspecified place or not applicable; E87.6 Hypokalemia; F32.9 Major depressive disorder, single episode, unspecified; I10 Essential (primary) hypertension; M06.9 Rheumatoid arthritis, unspecified; Z79.52 Long term (current) use of systemic steroids
CPT/HCPCS: 31720; 36415; 36569; 36600; 70450-TC; 71045-TC; 72125-TC; 80048-TC; 80053-TC; 80076-TC; 80202-TC; 80305; 81000-TC; 82010-TC; 82088; 82436-TC; 82570-TC; 82803-TC; 82962-TC; 83605-TC; 83735-TC; 83880; 84133-TC; 84244; 84300-TC; 84436-TC; 84443-TC; 84484-TC; 85025-TC; 85730-TC; 87040-TC; 87070-TC; 87081-TC; 87086-TC; 87400; 93307-TC; 94002-TC; 94003-TC; 94760-TC; 94799-TC; 97110-TC; 97116-TC; 97530-TC; 99082-TC; A6402; A6403; C1751; G0378; G0480; G0500; J0330; J1644; J1956; J2270; J2405; J2543; J2704; J3370; J3475; J3480; J3490; J7030; J7042; J7050; J7060; J7070; J7512

== ENCOUNTER 2020-04-10 16:03 | Inpatient (IN) | payer MEDICARE, OTHER ==
[~2020-04-10] VITALS: Ht 167.6 cm; Wt 72.6 kg
[~2020-04-10 16:03] MED LIST changes: -CETI-102 PO; +CETI-90 PO; +CIPR-262 PO; -GABA600T12 PO; -METH2.5T PO; +VANC1PLA9 IV
--- NOTE | 2020-04-10 16:11 | NUR ---
AURORA FROM HOME C/O L HIP PAIN AND LLE SWELLING S/P FALL OFF FROM BED. RECEIVED FENTANYL 100MCG IM EN ROUTE. TO ER BED 2, HOOKED TO V/STOL LANDING SIGNAL OFFICER, BP CUFF AND POX, CHANGED TO HOSP GOWN, WARM BLANKET PROVIDED, PATIENT AAOx 3, BREATHING EVEN AND UNLABORED, NAD NOTED, DR PAT AT BEDSIDE
--- NOTE | 2020-04-10 16:17 | NUR ---
Gregg sahni in [facility] - 04/10/20 at [address] PAT AT BEDSIDE
--- NOTE | 2020-04-10 16:17 | NUR ---
Note kaitlyn in EDM - 04/10/20 at 1819 by MAITE BIBRA FROM HOME C/O L HIP PAIN AND LLE SWELLING S/P FALL OFF FROM BED. TO ER BED 2, HOOKED TO SURVEY COMPILER, BP CUFF AND POX, CHANGED TO HOSP GOWN, WARM BLANKET PROVIDED, PATIENT AAOx 3, BREATHING EVEN AND UNLABORED, NAD NOTED, AWAITING MD PRUITT.
[2020-04-10] MEDS ORDERED: ONDANSETRON HCL/PF 4 MG/2 ML VIAL ONE (16:26)
[2020-04-10] MEDS ORDERED: MORPHINE SULFATE INJ 4 MG/ML DISP.SYRIN ONE (16:27)
[2020-04-10] MEDS ORDERED: MORPHINE SULFATE INJ 2 MG/ML DISP.SYRIN IV ONE (16:30)
[2020-04-10] MEDS ORDERED: ONDANSETRON HCL/PF 4 MG/2 ML VIAL IV ONE (16:30)
--- NOTE | 2020-04-10 16:31 | NUR ---
YEISON SOLORZANO AT BEDSIDE FOR JIN OF LLE
[2020-04-10 16:35] LABS: BASOPHILS # (AUTO) 0.1 /CMM (0.0-0.2); EOSINOPHILS % (AUTO) 0.7 % (0.0-6.0); HEMATOCRIT 37 % (33-45); HEMOGLOBIN 12.5 g/dL (11.5-14.8); LYMPHOCYTES # (AUTO) 1.5 /CMM (0.8-4.8); LYMPHOCYTES % (AUTO) 13.7 % (20.0-44.0); MEAN CORPUSCULAR HGB CONC 34 g/dl (31.0-36.0); MEAN CORPUSCULAR VOLUME 101 fL (82-100); MONOCYTES # (AUTO) 0.8 /CMM (0.1-1.30); MONOCYTES % (AUTO) 6.9 % (2.0-12.0); NEUTROPHILS # (AUTO) 8.5 /CMM (1.8-8.9); NEUTROPHILS % (AUTO) 77.7 % (43.0-81.0); PLATELET COUNT (AUTO) 293 /CMM (150-450); RED BLOOD CELL COUNT(AUTO) 3.67 MIL/uL (4.0-5.2)
--- NOTE | 2020-04-10 16:46 | NUR ---
SALES MANAGER AT BEDSIDE
[2020-04-10 16:56] LABS: CALCIUM, SERUM 8.7 mg/dL (8.5-10.1)
[2020-04-10 17:18] LABS: EOSINOPHILS % (MANUAL) 1 % (0-4); LYMPHOCYTES % (MANUAL) 17 % (16-48); MONOCYTES % (MANUAL) 8 % (0-11.0); NEUTROPHILS % (MANUAL) 74 (42-76)
[2020-04-10] MEDS ORDERED: FURO20TA4 PO (17:26)
[2020-04-10] MEDS ORDERED: GABA600T12 PO (17:26)
[2020-04-10] MEDS ORDERED: METO-357 PO (17:26)
[2020-04-10] MEDS ORDERED: FAMO20TA8 PO (17:26)
[2020-04-10] MEDS ORDERED: PANT40TA49 PO (17:26)
[2020-04-10] MEDS ORDERED: POTASSIUM CL. PREMIX PERIPHER. 200 ML ONE (17:26)
[2020-04-10] MEDS ORDERED: TOLT4CAP14 PO (17:26)
[2020-04-10] MEDS ORDERED: PRED5TAB PO (17:26)
[2020-04-10] MEDS ORDERED: HYDROMORPHONE 1 MG/1 ML DISP.SYRIN ONE ×2 (17:28→18:59)
[2020-04-10] MEDS ORDERED: POTASSIUM CHLORIDE 10 MEQ/50 ML PREMIXED IVPB FOR PERIPHERAL LINE IV ONE (17:30)
[2020-04-10] MEDS ORDERED: HYDROMORPHONE 1 MG/1 ML DISP.SYRIN IV ONE ×2 (17:30→19:00)
[2020-04-10] MEDS ORDERED: IV NS 0.9% 1,000 ML BAG IV ONE (17:30)
--- NOTE | 2020-04-10 17:50 | NUR ---
CALLED [facility] PAGED DR MAXWELL
--- NOTE | 2020-04-10 18:05 | NUR ---
RAPID COVID SWAB DONE AND SENT TO LAB
--- NOTE | 2020-04-10 18:34 | NUR ---
CALLED [facility] PAGED CATHY SYKES
[2020-04-10] MEDS ORDERED: ASPIRIN 325 MG TABLET PO ONE (19:00)
[2020-04-10] MEDS ORDERED: ASPIRIN 325 MG TABLET ONE (19:00)
--- NOTE | 2020-04-10 19:03 | NUR ---
CALLED [facility], PAGED DR LAI
--- NOTE | 2020-04-10 19:29 | NUR ---
REPORT GIVEN TO LUCIANO LYNN FOR ELTON. WITH ONGOING POTASSIUM DRIP.
[2020-04-10] MEDS ORDERED: ACETAMINOPHEN 325 MG TABLET PO PRN (19:30)
[2020-04-10] MEDS ORDERED: MAG HYDROX/AL HYDROX/SIMETH 30 ML UDC PO PRN (19:30)
[2020-04-10] MEDS ORDERED: MAGNESIUM HYDROXIDE 30 ML UDC PO PRN (19:30)
[2020-04-10] MEDS ORDERED: FUROSEMIDE 40 MG/4 ML VIAL IV ONE (19:30)
[2020-04-10] MEDS ORDERED: Z GUARD REMEDY 2 OZ OINT TP PRN (19:30)
[2020-04-10] MEDS ORDERED: ONDANSETRON HCL/PF 4 MG/2 ML VIAL IVP PRN (19:30)
[2020-04-10] MEDS ORDERED: LORAZEPAM INJ 2 MG/ML VIAL ONE (19:59)
[2020-04-10] MEDS ORDERED: LORAZEPAM INJ 2 MG/ML VIAL IV ONE (20:00)
--- NOTE | 2020-04-10 20:18 | NUR ---
REPORT GIVEN TO LUCIANO MANSFIELD FOR [facility]
--- NOTE | 2020-04-10 20:31 | NUR ---
PT TRANSFERRED TO ROOM VIA ACLS PROTOCOL
[2020-04-10] MEDS: HYDROMORPHONE INJ 2 MG/ML DISP.SYRIN IV PRN (21:10)
[2020-04-10] MEDS: buPROPion 75 MG TABLET PO SCH (22:00)
[2020-04-10] MEDS: ZOLPIDEM TARTRATE 5 MG TABLET PO PRN (22:30)
[2020-04-10] MEDS: HYDROCODONE/APAP 5/325MG TABLET PO PRN (22:30)
--- NOTE | 2020-04-10 22:46 | NUR ---
unable to provide welbutrin due to unavailability at this moment. Nurse watch manufacturing supervisor aware and unable to obtain medication. Charge nurse aware.
--- NOTE | 2020-04-10 23:55 | NUR ---
SPOKE WITH DOCTOR LAI ABOUT THE CLIENTS CONTINUOUS HR ON 115 - 120. NO INTERVENTIONS WERE MADE FOR THE CLIENT.
[2020-04-11] VITALS (9 sets, daily range): BP systolic 127–170; BP diastolic 71–129
[2020-04-11] MEDS: HYDROMORPHONE INJ 2 MG/ML DISP.SYRIN IV PRN ×2 (00:41→05:57)
[2020-04-11] MEDS: TRAMADOL HCL 50 MG TABLET PO PRN (02:30)
[2020-04-11] MEDS: ZOLPIDEM TARTRATE 5 MG TABLET PO PRN (02:31)
[2020-04-11] MEDS: HYDROCODONE/APAP 5/325MG TABLET PO PRN ×4 (03:23→20:39)
[2020-04-11] MEDS ORDERED: DILTIAZEM HCL 25 MG IV IV PRN (05:00)
[2020-04-11 06:48] LABS: CREATININE 0.7 mg/dL (0.6-1.3); MAGNESIUM 2.1 mg/dL (1.8-2.4); PHOSPHORUS 2.6 mg/dL (2.5-4.9); POTASSIUM 3.5 mmol/L (3.5-5.1)
[2020-04-11 06:55] LABS: BASOPHILS # (AUTO) 0.1 /CMM (0.0-0.2); BASOPHILS % (AUTO) 0.6 % (0.0-2.0); EOSINOPHILS % (AUTO) 1.1 % (0.0-6.0); HEMATOCRIT 34 % (33-45); HEMOGLOBIN 11.2 g/dL (11.5-14.8); LYMPHOCYTES # (AUTO) 0.7 /CMM (0.8-4.8); MEAN CORPUSCULAR HGB CONC 33 g/dl (31.0-36.0); MEAN CORPUSCULAR VOLUME 103 fL (82-100); MONOCYTES # (AUTO) 0.6 /CMM (0.1-1.30); MONOCYTES % (AUTO) 7.3 % (2.0-12.0); NEUTROPHILS # (AUTO) 7.3 /CMM (1.8-8.9); PLATELET COUNT (AUTO) 231 /CMM (150-450); RED BLOOD CELL COUNT(AUTO) 3.28 MIL/uL (4.0-5.2); WHITE BLOOD COUNT (AUTO) 8.8 K/uL (4.3-11.0)
--- NOTE | 2020-04-11 07:00 | NUR ---
PER THE ER REPORT, THE CLIENT IS ALLERGIC TO PLASTIC. WHEN I ASKED THE CLIENT WHICH PLASTIC, THE CLIENT IS UNABLE TO SAY WHICH PLASTIC. THE CLIENT DENIES ALLERGY TO LATEX. THE CLIETN DENIES ALLERGIES TO ANY SPECIFIC PLASTIC TOOL USED IN THE HOSPITAL. THE PHARMACY IS AWARE OF THIS.
--- NOTE | 2020-04-11 07:54 | NUR ---
MANAGER LAW NOTE PATIENT IN BED ALERT ORIENTED X3 , ON TELEMONITOR ST 116 , LAC HL INTACT, NO S\S INFECTION NOTED, ON 2L OF O2 S ORDERED NO SOB NOTED AT THIS TIME , BED IN LOWEST AND LOCKED POSITION , CALL LIGHT WITHIN REACH, WILL CONT TO MONITOR CLOSELY
[2020-04-11] MEDS: LEVOTHYROXINE SODIUM 100 MCG TABLET PO SCH (08:22)
[2020-04-11] MEDS: FOLIC ACID 1 MG TABLET PO SCH (08:23)
[2020-04-11] MEDS: AMLODIPINE BESYLATE 5 MG TABLET PO SCH (08:27)
[2020-04-11] MEDS: GABAPENTIN 300 MG CAPSULE PO SCH ×3 (08:28→16:24)
[2020-04-11] MEDS: PANTOPRAZOLE 40 MG TABLET.DR PO SCH ×2 (08:33→16:25)
[2020-04-11] MEDS: FAMOTIDINE (20 MG) 20 MG TABLET PO SCH (08:33)
--- NOTE | 2020-04-11 08:44 | NUR ---
FIRE REGULATOR NOTE / DR DAMON AT BEDSIDE NOTIFIED THAT LAST NIGHT HR WAS [address] BP 170\129
--- NOTE | 2020-04-11 08:46 | NUR ---
WINDOW TRIMMER NOTE 2DECHO DOING NOW
[2020-04-11] MEDS ORDERED: METOPROLOL SUCCINATE 50 MG TAB.SR.24H PO SCH (09:00)
[2020-04-11] MEDS ORDERED: ASPIRIN 325 MG TABLET PO SCH (09:00)
[2020-04-11] MEDS ORDERED: ASPIRIN 81 MG TAB.CHEW PO SCH (09:00)
[2020-04-11] MEDS ORDERED: FUROSEMIDE 40 MG/4 ML VIAL IV SCH (09:00)
[2020-04-11] MEDS: predniSONE 5 MG TABLET PO SCH ×2 (09:25→16:25)
[2020-04-11 09:59] LABS: IRON, SERUM 106 ug/dl (50-175); TOTAL IRON BINDING CAPACITY 305 ug/dl (250-450)
[2020-04-11 10:18] LABS: FERRITIN 158 ng/mL (8-388)
--- NOTE | 2020-04-11 10:21 | NUR ---
telecommunications technician note called x2 to pharmacy verified medication, spoke with adriana stated that will do soon
[2020-04-11] MEDS: TOLTERODINE 2 MG CAP.SR PO SCH (11:06)
[2020-04-11] MEDS: ATORVASTATIN 10 MG TABLET PO SCH (11:06)
[2020-04-11] MEDS: ENOXAPARIN SODIUM 40 MG/0.4 ML DISP.SYRIN SQ SCH (11:07)
--- NOTE | 2020-04-11 11:39 | NUR ---
ANALYTICAL LAB TECHNICIAN NOTE GUI DNP AT BEDSIDE AWARE THAT PATIENT HAS PAIN ON LT SIDE HIP,ASSESSED PATIENT , NO ORTHO CONSULT NEEDED AT THIS TIME BUT ORDERED MEDICATION FOR RASHES LT HIP WILL F\U. ALSO AWARE THAT BP WAS HIGH EARLIER AND HR ST124 STATED CONT MEDS ORDERED
[2020-04-11] MEDS ORDERED: INFLUENZA VACCINE 2020-21 0.5 ML DISP.SYRIN IM ONE (12:00)
[2020-04-11] MEDS ORDERED: PNEUMOCOCCAL 23-VAL P-SAC VAC 0.5 ML VIAL SQ ONE (12:00)
[2020-04-11] MEDS: METOPROLOL TARTRATE 50 MG TABLET PO SCH ×2 (12:19→17:11)
[2020-04-11] MEDS: ACYCLOVIR 800 MG TABLET PO SCH ×4 (12:19→20:40)
[2020-04-11] MEDS: FUROSEMIDE 40 MG/4 ML VIAL IV SCH ×2 (12:38→16:30)
--- NOTE | 2020-04-11 12:46 | NUR ---
TELECOMMUNICATIONS NETWORK ENGINEER NOTE CAPPS CATH INSERTED ORDERED ,TYLENOL FOR LT SIDE PAIN GIVEN, WILL MONITOR
--- NOTE | 2020-04-11 14:09 | NUR ---
telecommunications network planner note flu vaccine given as ordered and pna vaccine will be given upon discharge .per daisy maher
--- NOTE | 2020-04-11 16:30 | NUR ---
MANAGER GROUP NOTE NORCO PO GIVEN FOR LT SIDE PAIN. NO SOB NOTED SATURATION 98%,REPOSITION DONE , KEEP CLEAN DRY
--- NOTE | 2020-04-11 18:25 | NUR ---
CYBER INTELLIGENCE ANALYST NOTE ROUNDS MADE,, FEED PATIENT, ABLE TO,EAT 25% ,ALL NEEDS ATTENDED, TURN REPOSITION Q 2 HOUR , CALL LIGHT WITHIN REACH , WILL CONT TO MONITOR Addendum: 04/11/20 at 1840 by MAKEDA THORNE RN CALLED ,UPDATED PATIENT CONDITION
--- NOTE | 2020-04-11 19:20 | NUR ---
FENDER MECHANIC APPRENTICE NOTE, PATIENT IN BED , SLEEPING AT THIS TIME, BUT AROUSES TO TACTILE STIMULI, ON 2L OF O2 WITH OPTIMAL O2 SAT LEVEL, NO SOB/ACUTE RESPIRATORY DISTRESS NOTED, ON TELEMONITOR ST LOW 100S AT THIS TIME, LAC HL INTACT, NO INFILTRATION NOTED AT THIS TIME, BED LOCKED AND LOWEST POSITION , ON CONTACT ISOLATION FOR SHINGLES, CALL LIGHT WITHIN REACH, WILL CONT TO MONITOR CLOSELY.
[2020-04-11] MEDS: buPROPion 75 MG TABLET PO SCH (21:23)
[2020-04-12] VITALS: BP 130/79
[2020-04-12] MEDS: HYDROCODONE/APAP 5/325MG TABLET PO PRN ×3 (00:41→12:57)
[2020-04-12] MEDS: METOPROLOL TARTRATE 50 MG TABLET PO SCH ×4 (00:41→17:13)
[2020-04-12 04:00] VITALS: BP 130/79
[2020-04-12] MEDS: HYDROMORPHONE INJ 2 MG/ML DISP.SYRIN IV PRN ×4 (04:21→20:37)
--- NOTE | 2020-04-12 06:25 | NUR ---
WHISTLE PUNK CLOSING NOTE, PATIENT IN BED ,AWAKE AT THIS TIME, BUT AROUSES TO TACTILE STIMULI, ON 2L OF O2 WITH OPTIMAL O2 SAT LEVEL, NO SOB/ACUTE RESPIRATORY DISTRESS NOTED, ON TELEMONITOR ST LOW 80S AT THIS TIME, MEDICATION FOR PAIN ADMINISTER THROUGHOUT THE NIGHT, NO SIGNIFICANT CHANGE IN CONDITION DURING THE NIGHT, BED LOCKED AND LOWEST POSITION , ON CONTACT ISOLATION FOR SHINGLES, CALL LIGHT WITHIN REACH, WILL ENDORSE CONTINUITY OF CARE TO ONCOMING NURSE.
[2020-04-12 06:47] LABS: BASOPHILS # (AUTO) 0.1 /CMM (0.0-0.2); BASOPHILS % (AUTO) 1.4 % (0.0-2.0); EOSINOPHILS % (AUTO) 3.1 % (0.0-6.0); HEMATOCRIT 34 % (33-45); HEMOGLOBIN 11.3 g/dL (11.5-14.8); LYMPHOCYTES # (AUTO) 0.6 /CMM (0.8-4.8); LYMPHOCYTES % (AUTO) 10.5 % (20.0-44.0); MEAN CORPUSCULAR HGB CONC 33 g/dl (31.0-36.0); MEAN CORPUSCULAR VOLUME 104 fL (82-100); MONOCYTES # (AUTO) 0.5 /CMM (0.1-1.30); MONOCYTES % (AUTO) 8.8 % (2.0-12.0); NEUTROPHILS # (AUTO) 4.5 /CMM (1.8-8.9); NEUTROPHILS % (AUTO) 76.2 % (43.0-81.0); PLATELET COUNT (AUTO) 207 /CMM (150-450); RED BLOOD CELL COUNT(AUTO) 3.27 MIL/uL (4.0-5.2); WHITE BLOOD COUNT (AUTO) 5.9 K/uL (4.3-11.0)
--- NOTE | 2020-04-12 07:15 | NUR ---
RN NOTE THE PATIENT IS RECEIVED IN BED. THE PATIENT IS ALERT AND ORIENTED X4. RECEIVING OXYGEN AT 2L/MIN VIA NASAL CANNULA AND DENIES SOB. RESPIRATION REGULAR AND UNLABORED. DENIES PAIN. THE PATIENT IN STABLE CONDITION. LAC G 20 PATENT AND SALINE LOCKED. CAPPS CATH PRESENT. NO BLADDER DISTENSION NOTED. BED LOW AND LOCKED. SIDE RIALS UP X3. CALL LIGHT WITHIN REACH. WILL CONTINUE TO MONITOR.
[2020-04-12 07:26] LABS: ALBUMIN 3.1 g/dL (3.4-5.0); BILIRUBIN,TOTAL 0.4 mg/dL (0.2-1.0); CALCIUM, SERUM 7.9 mg/dL (8.5-10.1); CREATININE 0.8 mg/dL (0.6-1.3); MAGNESIUM 2.2 mg/dL (1.8-2.4); PHOSPHORUS 2.3 mg/dL (2.5-4.9); POTASSIUM 3.1 mmol/L (3.5-5.1); TOTAL PROTEIN, SERUM 5.4 g/dL (6.4-8.2)
[2020-04-12] MEDS: ATORVASTATIN 10 MG TABLET PO SCH (08:18)
[2020-04-12] MEDS: FAMOTIDINE (20 MG) 20 MG TABLET PO SCH (08:18)
[2020-04-12] MEDS: GABAPENTIN 300 MG CAPSULE PO SCH ×3 (08:18→16:05)
[2020-04-12] MEDS: predniSONE 5 MG TABLET PO SCH ×2 (08:18→16:05)
[2020-04-12] MEDS: PANTOPRAZOLE 40 MG TABLET.DR PO SCH ×2 (08:19→16:05)
[2020-04-12] MEDS: FOLIC ACID 1 MG TABLET PO SCH (08:19)
[2020-04-12] MEDS: AMLODIPINE BESYLATE 5 MG TABLET PO SCH (08:20)
[2020-04-12] MEDS: ENOXAPARIN SODIUM 40 MG/0.4 ML DISP.SYRIN SQ SCH (08:21)
[2020-04-12] MEDS: TRAMADOL HCL 50 MG TABLET PO PRN (08:22)
--- NOTE | 2020-04-12 08:22 | NUR ---
RN NOTE THE PATIENT COMPLAINS OF LEFT LATERAL ABDOMEN AND LEFT HIP PAIN 8. TRAMADOL PRN GIVEN PER ORDER. WILL CONTINUE TO MONITOR.
[2020-04-12] MEDS: TOLTERODINE 2 MG CAP.SR PO SCH (08:25)
[2020-04-12] MEDS: LEVOTHYROXINE SODIUM 100 MCG TABLET PO SCH (08:25)
[2020-04-12] MEDS: ACYCLOVIR 800 MG TABLET PO SCH ×5 (08:25→20:36)
--- NOTE | 2020-04-12 08:38 | NUR ---
WOUND CARE CONSULT: LIMITED ASSESSMENT DUE TO PT REFUSING TO TURN FOR FULL SKIN ASSESSMENT. RED/PINK LESIONS NOTED TO LEFT HIP/WAIST AREA AND TO LEFT BREASTFOLD, PRESENT ON ADMISSION. DEFER TO MD FOR LESIONS. PT STATES LESIONS ARE PAINFUL. RECOMMENDATIONS MADE FOR SKIN PROTECTION. DISCUSSED WITH NURSING STAFF. MD IN AGREEMENT WITH PLAN OF CARE. PT IS ON [facility] LOW AIRLOSS BED.
[2020-04-12 09:00] VITALS: BP 118/76
--- NOTE | 2020-04-12 09:22 | NUR ---
RN NOTE THE PATIENT STILL COMPLAINS OF LEFT LATERAL ABDOMINAL PAIN 8 DESPITE GETTING TRAMADOL PO AT 0822. WILL MEDICATE THE PATIENT AND MONITOR.
--- NOTE | 2020-04-12 09:47 | NUR ---
RN NOTE ADMINISTERED DILAUDID PRN PER ORDER FOR LEFT LATERAL ABDOMEN PAIN 02/08. WILL CONTINUE TO MONITOR.
--- NOTE | 2020-04-12 10:00 | NUR ---
RN NOTE THE PATIENT IS NON-COMPLIANT WITH TURNING AND REPOSITIONING. EXPLAINED RISKS AND BENEFITS MULTIPLES TIMES, HOWEVER, THE PATIENT KEEP REFUSING STATING EITHER SHE HAS PAIN, SHE MIGT HAVE PAIN OR SHE WANTS TO SLEEP. THE PATIENT IS PREMEDICATED AND OFFERED TO TURN AND REPOSITION AFTER BEING MEDICATED BUT THE PATIENT IS STILL NONE COMPLIANT WITH TURNING AND REPOSITIONING.
--- NOTE | 2020-04-12 10:17 | NUR ---
RN NOTE THE PATIENT VERBALIZED GIVEN DILAUDID BEING EFFECTIVE AND RATED PAIN 0/10.
[2020-04-12] MEDS: POTASSIUM CHLORIDE 20 MEQ POWDER PACKET PO SCH ×3 (10:34→12:30)
[2020-04-12] MEDS: FUROSEMIDE 40 MG/4 ML VIAL IV SCH ×3 (10:34→18:48)
[2020-04-12] MEDS ORDERED: K PHOS NEUTRAL 250 MG TABLET PO ONE (11:30)
--- NOTE | 2020-04-12 12:00 | NUR ---
RN NOTE THE PATIENT IS NON-COMPLIANT WITH TURNING AND REPOSITIONING. EXPLAINED RISKS AND BENEFITS MULTIPLES TIMES, HOWEVER, THE PATIENT KEEP REFUSING STATING EITHER SHE HAS PAIN, SHE MIGT HAVE PAIN OR SHE WANTS TO SLEEP. THE PATIENT IS PREMEDICATED AND OFFERED TO TURN AND REPOSITION AFTER BEING MEDICATED BUT THE PATIENT IS STILL NONE COMPLIANT.
[2020-04-12 12:34] LABS: BAND % (MANUAL) 2 % (0.0-5.0); EOSINOPHILS % (MANUAL) 3 % (0-4); LYMPHOCYTES % (MANUAL) 8 % (16-48); MONOCYTES % (MANUAL) 7 % (0-11.0); NEUTROPHILS % (MANUAL) 80 (42-76)
--- NOTE | 2020-04-12 12:57 | NUR ---
RN NOTE PATIENT COMPLAINS OF 5/10 LEFT LATERAL ABDOMEN PAIN. NORCO 5/325 1 TAB PO GIVEN. WILL CONTINUE TO MONITOR.
[2020-04-12 13:00] VITALS: BP 128/86
--- NOTE | 2020-04-12 13:57 | NUR ---
RN NOTE THE PATIENT VERBALIZED GIVEN NOCRO 5/325 BEING EFFECTIVE AND RATED PAIN 2/10 ON LEFT LATERAL ABDOMEN. WILL CONTINUE TO MONITOR THE PATIENT
--- NOTE | 2020-04-12 14:50 | NUR ---
RN NOTE PATIENT COMPLAINS OF LEFT LATERAL ABDOMEN AND LEFT UNDER THE BREAST PAIN 03/11. PRN DILAUDID GIVEN PER ORDER. WILL CONTINUE TO MONITOR.
[2020-04-12] MEDS: ACETAMINOPHEN 325 MG TABLET PO SCH (15:33)
--- NOTE | 2020-04-12 15:34 | NUR ---
RN NOTE THE PATIENT COMPLAINS OF RIGHT UNDER THE BREAST PAIN 3/10 DESPITE GIVEN PRN DILAUDID. SO ADMINISTERED SCHEDULED TYLENOL 650 PO. WILL CONTINUE TO MONITOR.
--- NOTE | 2020-04-12 16:47 | NUR ---
RN NOTE THE PATIENT IS NON-COMPLIANT WITH TURNING AND REPOSITIONING. EXPLAINED RISKS AND BENEFITS MULTIPLES TIMES, HOWEVER, THE PATIENT KEEP REFUSING STATING EITHER SHE HAS PAIN, SHE MIGT HAVE PAIN OR SHE WANTS TO SLEEP. THE PATIENT IS PREMEDICATED AND OFFERED TO TURN AND REPOSITION AFTER BEING MEDICATED BUT THE PATIENT IS STILL NONE COMPLIANT. NOT ABLE TO DO HEAD TO TOE SKIN ASSESSMENT AND TAKE SKIN PHOTOS DESPITE EXPLAINING RISKS AND BENEFITS.
[2020-04-12 17:00] VITALS: BP 130/72
--- NOTE | 2020-04-12 17:27 | NUR ---
RN NOTE PER MALLORIE HERRERA ATTEMPTED TO CONTACT [facility] BRAND DESIGNER ( TODAY PER OFFICE ELIJAH CABAN IS BRAND DESIGNER), LEFT MESSAGE TO ELIJAH CABAN BUT NO CALL BACK. MALLORIE HERRERA IS MADE AWARE.
[2020-04-12] MEDS: oxyCODONE IR immediate release 5 MG PO PRN (17:45)
--- NOTE | 2020-04-12 17:45 | NUR ---
RN NOTE THE PATIENT COMPLAINS OF LEFT HIP PAIN 03/11. OXYCODONE 10 MG PO GIVEN. WILL CONTINUE TO MONITOR.
--- NOTE | 2020-04-12 18:06 | NUR ---
RN NOTE THE PATIENT IS TAKEN TO RADIOLOGY DEPT FOR CT. THE PATIENT LEFT THE UNIT IN STABLE CONDITION.
[2020-04-12] MEDS: DOCUSATE SODIUM 100 MG CAPSULE PO SCH (18:48)
--- NOTE | 2020-04-12 19:25 | NUR ---
RN NOTE THE PATIENT IS ALERT AND ORIENTED X2. ON OXYGEN AT 2L/MIN VIA NASAL CANNULA AND SATURATION IS AT 98%. DENIES SOB. RESPIRATION REGULAR AND UNLABORED. DENIES PAIN. LAC G 20 PATENT AND SALINE LOCKED. CAPPS CATH PRESENT AND DRAINING CLEAR, YELLOW COLOR URINE. NO BLADDER DISTENSION NOTED. EXTERNAL TELE BOX READING IS SR 100. BED LOW AND LOCKED. SIDE RAILS UP X3. CALL LIGHT WITHIN REACH. WILL ENDORSE TO CONTINUOUS IMPROVEMENT SPECIALIST.
--- NOTE | 2020-04-12 19:40 | NUR ---
FIRST AID ATTENDANT OPENING NOTE, PATIENT ASLEEP BUT AROUSABLE TO VERBAL STIMULI, ON 2L O2 VIA NC WITH O2 >96%, BREATHING EVEN AND UNLABORED, NO S/S OF ANY PAIN OR DISCOMFORT AT THIS TIME SINUS TACHY IN TELE MONITOR WITH HR IN LOW 100 AT THIS TIME, PRESENT AND DRAINING CLEAR, LEFT AC PIV LINE PATENT AND INTACT, F/C IN PLACE DRAINING YELLOW COLOR URINE BY GRAVITY, BED LOW AND LOCKED, SIDE RAILS UP X3, CALL LIGHT WITHIN REACH, WILL CONTINUE TO MONITOR CLOSELY.
[2020-04-12 20:00] VITALS: BP 119/87
[2020-04-12] MEDS: TOPIRAMATE 25 MG TABLET PO SCH (20:36)
[2020-04-12] MEDS: buPROPion 75 MG TABLET PO SCH (21:09)
[2020-04-13] VITALS: BP 123/86
[2020-04-13] MEDS: ACETAMINOPHEN 325 MG TABLET PO SCH ×4 (00:34→18:22)
[2020-04-13] MEDS: METOPROLOL TARTRATE 50 MG TABLET PO SCH ×4 (00:35→18:23)
[2020-04-13] MEDS: oxyCODONE IR immediate release 5 MG PO PRN (03:20)
[2020-04-13 04:00] VITALS: BP 126/91
--- NOTE | 2020-04-13 06:40 | NUR ---
METAL SHAPING MACHINE OPERATOR CLOSING NOTE, PATIENT AWAKE AT THIS TIME, A/O X 3 ABLE TO VERBALIZE NEEDS AND CONCERNS, ON 2L O2 VIA NC WITH O2 >96%, BREATHING EVEN AND UNLABORED, SINUS TACHY IN TELE MONITOR WITH HR IN LOW 100'S MOSTLY DURING THE NIGHT, LEFT AC PIV LINE PATENT AND INTACT, DILAUDID X1, OXY X1 AND 2X TYLENOL SCHEDULED, ADMINISTERED DURING MY SHIFT, PATIENT HAD ADEQUATE HRS OF SLEEP, OTHERWISE NO SIGNIFICANT CHANGE IN CONDITION, BED LOCKED AND LOWEST POSITION, SIDE RAILS UP X3, CALL LIGHT WITHIN REACH, WILL ENDORSE CONTINUITY OF CARE TO ONCOMING NURSE.
[2020-04-13 06:43] LABS: BASOPHILS # (AUTO) 0.1 /CMM (0.0-0.2); BASOPHILS % (AUTO) 0.9 % (0.0-2.0); EOSINOPHILS % (AUTO) 1.1 % (0.0-6.0); HEMATOCRIT 39 % (33-45); HEMOGLOBIN 13.1 g/dL (11.5-14.8); LYMPHOCYTES # (AUTO) 1.1 /CMM (0.8-4.8); MEAN CORPUSCULAR HGB CONC 33 g/dl (31.0-36.0); MEAN CORPUSCULAR VOLUME 103 fL (82-100); MONOCYTES # (AUTO) 0.8 /CMM (0.1-1.30); MONOCYTES % (AUTO) 8.3 % (2.0-12.0); NEUTROPHILS % (AUTO) 78.7 % (43.0-81.0); PLATELET COUNT (AUTO) 203 /CMM (150-450); RED BLOOD CELL COUNT(AUTO) 3.82 MIL/uL (4.0-5.2); WHITE BLOOD COUNT (AUTO) 10.2 K/uL (4.3-11.0)
[2020-04-13 07:06] LABS: CALCIUM, SERUM 7.7 mg/dL (8.5-10.1); CREATININE 0.9 mg/dL (0.6-1.3); PHOSPHORUS 2.6 mg/dL (2.5-4.9); POTASSIUM 3.2 mmol/L (3.5-5.1)
--- NOTE | 2020-04-13 07:45 | NUR ---
RN OPENING NOTE, PATIENT ASLEEP BUT AROUSES TO VERBAL STIMULI, ON 2L O2 VIA NC WITH O2 >96%, BREATHING EVEN AND UNLABORED, NO S/S OF ANY PAIN OR DISCOMFORT AT THIS TIME NORMAL SINUS 98 IN TELE MONITOR . LEFT AC PIV LINE PATENT AND INTACT NO S/S OF INFILTRATION OR INFECTION. F/C IN PLACE DRAINING YELLOW COLOR URINE BY GRAVITY. SAFETY MEASUREMENTS ARE IMPLEMENTED BY HOSPITAL POLICY. BED IS LOW AND LOCKED, SIDE RAILS UP X3, CALL LIGHT WITHIN REACH, WILL CONTINUE TO MONITOR CLOSELY.
[2020-04-13] MEDS: TOPIRAMATE 25 MG TABLET PO SCH ×2 (08:10→21:23)
[2020-04-13] MEDS: AMLODIPINE BESYLATE 5 MG TABLET PO SCH (08:10)
[2020-04-13] MEDS: GABAPENTIN 300 MG CAPSULE PO SCH ×3 (08:10→16:10)
[2020-04-13] MEDS: predniSONE 5 MG TABLET PO SCH ×2 (08:10→16:15)
[2020-04-13] MEDS: PANTOPRAZOLE 40 MG TABLET.DR PO SCH ×2 (08:10→16:10)
[2020-04-13] MEDS: FOLIC ACID 1 MG TABLET PO SCH (08:10)
[2020-04-13] MEDS: DOCUSATE SODIUM 100 MG CAPSULE PO SCH ×2 (08:10→16:10)
[2020-04-13] MEDS: ACYCLOVIR 800 MG TABLET PO SCH ×5 (08:10→21:23)
[2020-04-13] MEDS: FAMOTIDINE (20 MG) 20 MG TABLET PO SCH (08:10)
[2020-04-13] MEDS: LEVOTHYROXINE SODIUM 100 MCG TABLET PO SCH (08:11)
[2020-04-13] MEDS: ENOXAPARIN SODIUM 40 MG/0.4 ML DISP.SYRIN SQ SCH (08:13)
[2020-04-13] MEDS: ATORVASTATIN 10 MG TABLET PO SCH (08:17)
[2020-04-13] MEDS: TOLTERODINE 2 MG CAP.SR PO SCH (08:17)
[2020-04-13 08:43] LABS: EOSINOPHILS % (MANUAL) 1 % (0-4); LYMPHOCYTES % (MANUAL) 15 % (16-48); MONOCYTES % (MANUAL) 6 % (0-11.0); NEUTROPHILS % (MANUAL) 78 (42-76)
[2020-04-13 09:00] VITALS: BP 106/72
[2020-04-13] MEDS ORDERED: POTASSIUM CHLORIDE 20 MEQ TAB.PRT.SR PO ONE (09:30)
[2020-04-13] MEDS ORDERED: POTASSIUM CHLORIDE 20 MEQ TAB.PRT.SR PO SCH (11:00)
[2020-04-13 13:00] VITALS: BP 113/61
[2020-04-13] MEDS ORDERED: NITROGLYCERIN 0.4 MG/TAB BOTTLE SL ONE (13:00)
[2020-04-13] MEDS ORDERED: METOPROLOL TARTRATE INJ 5 MG/5 ML AMPUL IVP PRN (13:00)
--- NOTE | 2020-04-13 13:28 | NUR ---
RN NOTES PT WAS ORDERED CTA ANGIOGRAM WITH 3 D DIMENSION, CONSENT SIGNED AND NITRATE IS TAKING BEFORE THE EXAM.
[2020-04-13] MEDS ORDERED: IOHEXOL-350 100 ML VIAL IV ONE (13:33)
[2020-04-13] MEDS ORDERED: IV NS 0.9% 250 ML IV ONE (13:33)
[2020-04-13] MEDS ORDERED: METOPROLOL TARTRATE INJ 5 MG/5 ML AMPUL ONE (13:43)
[2020-04-13 17:00] VITALS: BP 110/69
--- NOTE | 2020-04-13 18:27 | NUR ---
RN CLOSING NOTE, PATIENT AWAKE AT THIS TIME, A/O X 3 ABLE TO VERBALIZE NEEDS AND CONCERNS, ON 2L O2 VIA NC WITH O2 >96%, BREATHING EVEN AND UNLABORED, SINUS RYTHM IN TELE MONITOR WITH HR IN LOW 70'S MOSTLY DURING THE SHIFT LEFT AC PIV LINE PATENT AND INTACT, 2X TYLENOL SCHEDULED, ADMINISTERED DURING MY SHIFT, PATIENT HAD ADEQUATE HRS OF SLEEP, OTHERWISE NO SIGNIFICANT CHANGE IN CONDITION, SAFETY MEASUREMENTS ARE IMPLEMENTED PER HOSPITAL POLICY BED IS IN LOCKED AND LOWEST POSITION, SIDE RAILS UP X3, CALL LIGHT WITHIN REACH, WILL ENDORSE TO PM NURSE CONTINUITY OF CARE TO ONCOMING NURSE.
[2020-04-13 20:00] VITALS: BP 134/69
[2020-04-13] MEDS: buPROPion 75 MG TABLET PO SCH (21:23)
[2020-04-14] VITALS: BP 118/71
[2020-04-14] MEDS: METOPROLOL TARTRATE 50 MG TABLET PO SCH ×4 (00:42→17:27)
[2020-04-14] MEDS: ACETAMINOPHEN 325 MG TABLET PO SCH ×4 (00:42→18:09)
[2020-04-14 04:00] VITALS: BP 105/68
[2020-04-14] MEDS: ACYCLOVIR 800 MG TABLET PO SCH ×5 (06:27→20:39)
[2020-04-14] MEDS: LEVOTHYROXINE SODIUM 100 MCG TABLET PO SCH (06:28)
[2020-04-14 06:42] LABS: CALCIUM, SERUM 7.7 mg/dL (8.5-10.1); CREATININE 0.9 mg/dL (0.6-1.3); POTASSIUM 3.3 mmol/L (3.5-5.1)
--- NOTE | 2020-04-14 07:15 | NUR ---
RN OPENING NOTE: Received patient in bed. Awake, alert and oriented x4. Able to make needs known. Isolation precautions observed for Shingles. On cont. o2 via Nc @ 2lpm being tolerated well. No SOB and not in respiratory distress. IV site clean, dry, patent and intact. No pain reported at the moment. Mosher catheter in place and draining yellow urine. Call light in reach. Bed locked, low and at semi-valladares's position. Side rails upx3. Safety ensured and observed. Will continue to monitor.
[2020-04-14 08:00] VITALS: BP 116/71
[2020-04-14] MEDS: ATORVASTATIN 10 MG TABLET PO SCH (08:42)
[2020-04-14] MEDS: GABAPENTIN 300 MG CAPSULE PO SCH ×3 (08:42→17:26)
[2020-04-14] MEDS: TOLTERODINE 2 MG CAP.SR PO SCH (08:43)
[2020-04-14] MEDS: TOPIRAMATE 25 MG TABLET PO SCH ×2 (08:43→20:39)
[2020-04-14] MEDS: PANTOPRAZOLE 40 MG TABLET.DR PO SCH ×2 (08:43→17:26)
[2020-04-14] MEDS: AMLODIPINE BESYLATE 5 MG TABLET PO SCH (08:43)
[2020-04-14] MEDS: DOCUSATE SODIUM 100 MG CAPSULE PO SCH ×2 (08:43→17:26)
[2020-04-14] MEDS: FOLIC ACID 1 MG TABLET PO SCH (08:43)
[2020-04-14] MEDS: FAMOTIDINE (20 MG) 20 MG TABLET PO SCH (08:43)
[2020-04-14] MEDS: predniSONE 5 MG TABLET PO SCH ×2 (10:02→17:26)
[2020-04-14] MEDS: POTASSIUM CHLORIDE 20 MEQ TAB.PRT.SR PO SCH ×2 (10:02→11:44)
[2020-04-14] MEDS: ENOXAPARIN SODIUM 40 MG/0.4 ML DISP.SYRIN SQ SCH (10:03)
[2020-04-14] MEDS: oxyCODONE IR immediate release 5 MG PO PRN (10:27)
[2020-04-14] MEDS: HYDROMORPHONE INJ 2 MG/ML DISP.SYRIN IV PRN ×2 (11:44→20:46)
--- NOTE | 2020-04-14 19:27 | NUR ---
RN CLOSING NOTE: Patient remains in bed. Awake, alert and oriented x4. Able to make needs known. Isolation precautions observed for Shingles. On cont. o2 via Nc @ 2lpm being tolerated well. No SOB and not in respiratory distress. IV site clean, dry, patent and intact. Generalized pain reported and managed with prescribed medications throughout shift. Mosher catheter in place and draining yellow urine. Patient aware of current 400mls/day Free Water Restrcition ordered. Declined F/U CTCA when asked again by Nurse. Seen by Dr. Ramirez earlier. Call light in reach. Bed locked, low and at semi-valladares's position. Side rails upx3. Safety ensured and observed. Due medications given. Treatment given as ordered. Endorsed to oncoming shift for ELTON.
[2020-04-14 20:00] VITALS: BP 102/48
--- NOTE | 2020-04-14 20:00 | NUR ---
MS RN OPENING NOTE RECEIVED PT IN BED, A/O X2. BREATHING EVEN AND UNLABORED WITH NO SOB OR ACUTE DISTRESS NOTED. DENIES ANY PAIN OR DISCOMFORT. IV SITE PATENT AND INTACT. DRESSING CLEAN AND DRY. CAPPS CATHETER PATENT DRAINING YELLOW CLEAR URINE. BED IN LOWEST POSITION. SRX2 UP. CALL LIGHT WITHIN REACH. ALL NEEDS RENDERED. WILL CONTINUE TO MONITOR.
[2020-04-14] MEDS: buPROPion 75 MG TABLET PO SCH (22:07)
[2020-04-15] MEDS: METOPROLOL TARTRATE 50 MG TABLET PO SCH ×4 (00:09→11:29)
[2020-04-15] MEDS: ACETAMINOPHEN 325 MG TABLET PO SCH ×3 (00:09→11:50)
[2020-04-15 04:00] VITALS: BP 138/81
--- NOTE | 2020-04-15 06:36 | NUR ---
MS RN CLOSING NOTE PT IN BED, ASLEEP. BREATHING EVEN AND UNLABORED WITH NO SOB OR ACUTE DISTRESS NOTED IN RA 02 SATURATION AT 96%. NO S/S OF PAIN OR DISCOMFORT. IV SITE PATENT AND INTACT. DRESSING CLEAN AND DRY. CAPPS CATHETER PATENT DRAINING YELLOW CLEAR URINE 1000ML OUTPUT. BED IN LOWEST POSITION. SRX2 UP. CALL LIGHT WITHIN REACH. ALL NEEDS RENDERED. WILL ENDORSE TO AM NURSE FOR CONTINUITY OF CARE.
[2020-04-15 07:20] LABS: CALCIUM, SERUM 8.6 mg/dL (8.5-10.1); MAGNESIUM 2.2 mg/dL (1.8-2.4); PHOSPHORUS 2.1 mg/dL (2.5-4.9); POTASSIUM 3.7 mmol/L (3.5-5.1)
--- NOTE | 2020-04-15 07:30 | NUR ---
RN OPENING NOTES Received patient in bed, A/Ox2, on RA tolerating well, no SOB or resp distress noted, med surg status, Mosher cath in place, draining yellow clear urine by gravity, Skin arreola noted on patient back and under left breast, patient is on contact isolation. IV line on L AC noted, intact and patent. Cardiac diet status noted. Safety measures in place, call light in reach, bed in lowest position, bed alarm is on, will cont to monitor
[2020-04-15] MEDS: ACYCLOVIR 800 MG TABLET PO SCH ×2 (07:32→11:21)
[2020-04-15] MEDS: LEVOTHYROXINE SODIUM 100 MCG TABLET PO SCH (07:32)
[2020-04-15 08:00] VITALS: BP 143/73
[2020-04-15] MEDS: TOLTERODINE 2 MG CAP.SR PO SCH (08:26)
[2020-04-15] MEDS: GABAPENTIN 300 MG CAPSULE PO SCH ×2 (08:26→13:16)
[2020-04-15] MEDS: FAMOTIDINE (20 MG) 20 MG TABLET PO SCH (08:27)
[2020-04-15] MEDS: ENOXAPARIN SODIUM 40 MG/0.4 ML DISP.SYRIN SQ SCH (08:27)
[2020-04-15] MEDS: AMLODIPINE BESYLATE 5 MG TABLET PO SCH (08:28)
[2020-04-15] MEDS: PANTOPRAZOLE 40 MG TABLET.DR PO SCH (08:28)
[2020-04-15] MEDS: ATORVASTATIN 10 MG TABLET PO SCH (08:28)
[2020-04-15] MEDS: FOLIC ACID 1 MG TABLET PO SCH (08:28)
[2020-04-15] MEDS: TOPIRAMATE 25 MG TABLET PO SCH (08:28)
[2020-04-15] MEDS: DOCUSATE SODIUM 100 MG CAPSULE PO SCH (08:28)
[2020-04-15] MEDS: predniSONE 5 MG TABLET PO SCH (08:31)
[2020-04-15 08:50] LABS: THYROID STIMULATING HORMONE 1.862 uIU/mL (0.358-3.74); URIC ACID 5.7 mg/dL (2.6-7.2)
[2020-04-15] MEDS ORDERED: NEUTRA PHOS 1 POWD.PACKET PO SCH (09:00)
--- NOTE | 2020-04-15 09:04 | NUR ---
Patient complains on severe pain 10/10 on her legs
[2020-04-15] MEDS: HYDROMORPHONE INJ 2 MG/ML DISP.SYRIN IV PRN (09:09)
[2020-04-15 12:00] VITALS: BP 101/66
[2020-04-15] MEDS ORDERED: PNEUMOCOCCAL 23-VAL P-SAC VAC 0.5 ML VIAL SQ ONE (12:30)
--- NOTE | 2020-04-15 13:51 | NUR ---
Took pictures of wounds, placed in chart
--- NOTE | 2020-04-15 14:15 | NUR ---
Transportation team present at bed site,, patient ID and final destination confirmed, with ILEANA Lewis , unit 21, IV line removed, Mosher cath removed, ID bands removed, patient is stable and ready to be transfer
== END 2020-04-15 14:35 | DRG 595 ==
LOC: ER 16:09 → TELE1 20:01 → MEDSG1 04-14 07:43
PROVIDERS: ADMIT Internal Medicine; ATTEND Internal Medicine
DX: B02.9 Zoster without complications (principal); I50.33 Acute on chronic diastolic (congestive) heart failure; I21.A1 Myocardial infarction type 2; E87.1 Hypo-osmolality and hyponatremia; M06.9 Rheumatoid arthritis, unspecified; I11.0 Hypertensive heart disease with heart failure; E87.6 Hypokalemia; E03.9 Hypothyroidism, unspecified; S70.02XA Contusion of left hip, initial encounter; W06.XXXA Fall from bed, initial encounter; Y92.89 Other specified places as the place of occurrence of the external cause; Z96.653 Presence of artificial knee joint, bilateral; Z96.629 Presence of unspecified artificial elbow joint; Z79.899 Other long term (current) drug therapy; Z79.890 Hormone replacement therapy; Z79.52 Long term (current) use of systemic steroids; Z88.8 Allergy status to other drugs, medicaments and biological substances; G89.4 Chronic pain syndrome; F32.9 Major depressive disorder, single episode, unspecified; D64.9 Anemia, unspecified; E87.5 Hyperkalemia; R29.6 Repeated falls; E66.9 Obesity, unspecified; Z68.29 Body mass index [BMI] 29.0-29.9, adult; F41.9 Anxiety disorder, unspecified; M41.9 Scoliosis, unspecified; M51.36 Other intervertebral disc degeneration, lumbar region
CPT/HCPCS: 36415; 71045-TC; 73502; 73610-TC; 73700-TC; 80048-TC; 80053-TC; 82728-TC; 83540-TC; 83735-TC; 83880; 84100-TC; 84443-TC; 84484-TC; 84550-TC; 85025-TC; 87081-TC; 90732; 93307-TC; 93971-TC; 97530-TC; C9803-CS; G0378; J1170; J1650; J1940; J2060; J2270; J2405; J3480; J3490; J7030; J7050; J7512; Q2036; Q9967

== ENCOUNTER 2020-04-16 17:02 | Inpatient (IN) | payer MEDICARE, OTHER ==
[~2020-04-16] VITALS: Ht 157.5 cm; Wt 73.5 kg
[~2020-04-16 17:02] MED LIST changes: -CETI-90 PO; -CIPR-262 PO; +FAMO20TA8 PO; +FURO20TA4 PO; +GABA600T12 PO; +METO-357 PO; +PANT40TA49 PO; -PRED1TAB PO; +PRED5TAB PO; +TOLT4CAP14 PO; -VANC1PLA9 IV
--- NOTE | 2020-04-16 17:07 | NUR ---
[facility] FOR BEING ALTERTED SINCE THIS MORNING, TACHYCARDIA AND LOW GRADE FEVER. PER REPORT OF NURSE FROM FACILITY PATIENT'S BASELINE MENTATION IS AAO x 2. TO ER BED , HOOKED TO BP CUFF AND POX, CHANGED TO HOSP GOWN, WARM BLANKET PROVIDED, PATIENT AAO x 1, BREATHING EVEN AND UNLABORED, AWAITING MD PRUITT.
--- NOTE | 2020-04-16 17:18 | NUR ---
Dr Souza at bedside for eval
[2020-04-16] MEDS ORDERED: IV NS 0.9% 500 ML BAG IV ONE ×2 (17:30→19:00)
--- NOTE | 2020-04-16 18:03 | NUR ---
URINE SAMPLE COLLECTED VIA STRAIGHT CATHETER, URINE SAMPLE SENT TO LAB
[2020-04-16 18:07] LABS: BASOPHILS # (AUTO) 0.1 /CMM (0.0-0.2); EOSINOPHILS % (AUTO) 1.2 % (0.0-6.0); HEMOGLOBIN 12.6 g/dL (11.5-14.8); PLATELET COUNT (AUTO) 317 /CMM (150-450)
[2020-04-16 18:15] LABS: BASOPHILS % (AUTO) 0.7 % (0.0-2.0); HEMATOCRIT 38 % (33-45); LYMPHOCYTES # (AUTO) 2.4 /CMM (0.8-4.8); LYMPHOCYTES % (AUTO) 15.5 % (20.0-44.0); MEAN CORPUSCULAR HGB CONC 33 g/dl (31.0-36.0); MEAN CORPUSCULAR VOLUME 102 fL (82-100); MONOCYTES # (AUTO) 2.1 /CMM (0.1-1.30); NEUTROPHILS # (AUTO) 10.5 /CMM (1.8-8.9); NEUTROPHILS % (AUTO) 68.6 % (43.0-81.0); RED BLOOD CELL COUNT(AUTO) 3.75 MIL/uL (4.0-5.2); WHITE BLOOD COUNT (AUTO) 15.3 K/uL (4.3-11.0)
[2020-04-16 18:22] LABS: CALCIUM, SERUM 8.4 mg/dL (8.5-10.1); POTASSIUM 3.1 mmol/L (3.5-5.1)
[2020-04-16 18:34] LABS: ALBUMIN 3.3 g/dL (3.4-5.0); BILIRUBIN,DIRECT 0.1 mg/dL (0.0-0.2); BILIRUBIN,TOTAL 0.6 mg/dL (0.2-1.0); TOTAL PROTEIN, SERUM 6.1 g/dL (6.4-8.2)
[2020-04-16 18:34] LABS: APPEARANCE,URINE Cloudy (CLEAR); BILIRUBIN,URINE SMALL (NEGATIVE); BLOOD, URINE Moderate Ery/uL (NEGATIVE); COLOR,URINE Yellow (YELLOW); KETONES,URINE Negative (NEGATIVE); LEUKOCYTE ESTERASE ,URINE Small (NEGATIVE); NITRITE, URINE Negative (NEGATIVE); PH,URINE 5.5 (5.0-8.0); PROTEIN,URINE Trace mg/dl (NEGATIVE); UGLUCOSE Negative (NEGATIVE); UROBILINOGEN,URINE 0.2 EU/dL (0.2)
[2020-04-16 18:48] LABS: BACTERIA,URINE 4+ /HPF (None Seen)
[2020-04-16 18:49] LABS: WBC,URINE 21-50 /HPF (0-3)
[2020-04-16] MEDS ORDERED: VANCOMYCIN HCL 1 GM in IV D5W 260 ML IV ONE (19:00)
[2020-04-16] MEDS ORDERED: PIPERACILLIN /TAZOBACTAM 3.375 G in IV D5W 50 ML IV ONE (19:00)
--- NOTE | 2020-04-16 19:24 | NUR ---
COVID SWAB TEST DONE AND SENT TO LAB
--- NOTE | 2020-04-16 19:24 | NUR ---
REPORT GIVEN TO ETIENNE WOLF FOR [facility]
[2020-04-16] MEDS ORDERED: PIPERACILLIN /TAZOBACTAM 3.375 G VIAL IV ONE (19:28)
[2020-04-16] MEDS ORDERED: POTASSIUM CL. PREMIX PERIPHER. 50 ML IV SCH (19:30)
[2020-04-16] MEDS ORDERED: ONDANSETRON HCL/PF 4 MG/2 ML VIAL IVP PRN (19:30)
[2020-04-16] MEDS ORDERED: Z GUARD REMEDY 2 OZ OINT TP PRN (19:30)
[2020-04-16] MEDS ORDERED: MAG HYDROX/AL HYDROX/SIMETH 30 ML UDC PO PRN (19:30)
[2020-04-16] MEDS ORDERED: MAGNESIUM HYDROXIDE 30 ML UDC PO PRN (19:30)
[2020-04-16] MEDS ORDERED: ACETAMINOPHEN 325 MG TABLET PO PRN (19:30)
[2020-04-16] MEDS ORDERED: VANCOMYCIN 1 GM VIAL ONE (19:56)
--- NOTE | 2020-04-16 20:01 | NUR ---
CALLED NURSING SUP FOR TELE BED.
--- NOTE | 2020-04-16 20:16 | NUR ---
REPORT GIVEN TO LUCIANO KENT FOR [facility]
--- NOTE | 2020-04-16 20:55 | NUR ---
TELE/RN ADMITTING NOTES: RECEIVED REPORT FROM ERVIN CLIFTON NURSE. PT ARRIVED TO THE UNIT AT 2054 VIA GURNEY UNDER ACLS PROTOCOL. IN STABLE CONDITION. NO SOB NOTED. ON ROOM AIR SATURATING WELL. A/OX3. FARSI SPEAKING, BUT ABLE TO UNDERSTAND AN DSPEAK MINIMAL WELSH. NO S/S OF DISTRESS. PT COMPLAINS OF GENERALIZED PAIN, MODERATE. ON STRATEGIC PROCUREMENT MANAGER WITH TELE READING OF NSR 92 WITH PVCS. BELONGINGS CHECKED AND SIGNED. SKIN ASSESSMENT DONE. RASHES AND REDNESS PRESENT ON THE LEFT HIP. PHOTO TAKEN AND DOCUMENTED. WOUND CONSULT DONE. PT IS ORIENTED TO UNIT AND STAFF. IV PRESENT ON THE RIGHT HAND #20G AND RIGHT WRIST. INTACT, PATENT, AND FLUSHING WELL. SAFETY MEASURES INITIATED. BED IN LOW, LOCKED POSITION WITH SR UPX2. CALL LIGHT WITHIN REACH. WILL CONTINUE MONITOR ACCORDINGLY.
[2020-04-16 21:00] VITALS: BP 124/62
[2020-04-16] MEDS ORDERED: POTASSIUM CL. PREMIX PERIPHER. 0 ML ONE (21:39)
[2020-04-16] MEDS ORDERED: ENOXAPARIN SODIUM 30 MG/0.3 ML DISP.SYRIN SQ SCH (22:00)
[2020-04-16] MEDS: buPROPion 75 MG TABLET PO SCH (22:00)
[2020-04-16] MEDS: POTASSIUM CL. PREMIX PERIPHER. 50 ML IV SCH ×2 (22:03→23:13)
[2020-04-16] MEDS ORDERED: CEFTRIAXONE 1 G VIAL ONE (22:10)
[2020-04-16] MEDS: IV NS 0.9% 1,000 ML IV PRN (22:18)
[2020-04-16] MEDS: CEFTRIAXONE 1 G in IV D5W 50 ML IV SCH (22:29)
[2020-04-16] MEDS: HYDROCODONE/APAP 5/325MG TABLET PO PRN (23:05)
--- NOTE | 2020-04-16 23:05 | NUR ---
TELE/RN NOTES: PATIENT COMPLAINED OF PAIN ON HER FEET. REQUESTED NORCO. VSS. ADMINISTERED NORCO 5/325 ORDERED FOR PAIN Q4H. TOLERATED WELL. WILL CONTINUE TO MONITOR.
[2020-04-17] VITALS: BP 116/54
[2020-04-17] MEDS: POTASSIUM CL. PREMIX PERIPHER. 50 ML IV SCH ×3 (00:23→02:31)
[2020-04-17 04:00] VITALS: BP 119/59
--- NOTE | 2020-04-17 06:52 | NUR ---
TELE/RN CLOSING NOTES: PT REMAINS IN STABLE CONDITION. NO SOB NOTED. ON ROOM AIR SATURATING WELL. A/OX3. NO S/S OF DISTRESS. NO C/O PAIN, MODERATE. ON MEAT SMOKER WITH TELE READING OF SR 90 WITH PVCS. IV PRESENT ON THE RIGHT HAND #20G AND RIGHT WRIST. INTACT, PATENT, AND FLUSHING WELL. SAFETY MEASURES INITIATED. BED IN LOW, LOCKED POSITION WITH SR UPX2. CALL LIGHT WITHIN REACH. ALL DUE MEDS GIVEN ORDERED. ALL NURSING NEEDS MET AND RENDERED, WILL ENDORSE TO DAY SHIFT FOR [facility].
[2020-04-17 06:54] LABS: BASOPHILS # (AUTO) 0.1 /CMM (0.0-0.2); BASOPHILS % (AUTO) 0.7 % (0.0-2.0); EOSINOPHILS % (AUTO) 5.8 % (0.0-6.0); HEMATOCRIT 32 % (33-45); HEMOGLOBIN 10.7 g/dL (11.5-14.8); LYMPHOCYTES # (AUTO) 2.7 /CMM (0.8-4.8); LYMPHOCYTES % (AUTO) 24.7 % (20.0-44.0); MEAN CORPUSCULAR HGB CONC 33 g/dl (31.0-36.0); MEAN CORPUSCULAR VOLUME 103 fL (82-100); MONOCYTES # (AUTO) 1.6 /CMM (0.1-1.30); MONOCYTES % (AUTO) 14.7 % (2.0-12.0); NEUTROPHILS % (AUTO) 54.1 % (43.0-81.0); PLATELET COUNT (AUTO) 267 /CMM (150-450); RED BLOOD CELL COUNT(AUTO) 3.13 MIL/uL (4.0-5.2); WHITE BLOOD COUNT (AUTO) 11.1 K/uL (4.3-11.0)
[2020-04-17 07:09] LABS: CALCIUM, SERUM 7.6 mg/dL (8.5-10.1); CREATININE 0.7 mg/dL (0.6-1.3); PHOSPHORUS 2.9 mg/dL (2.5-4.9); POTASSIUM 3.2 mmol/L (3.5-5.1)
--- NOTE | 2020-04-17 07:24 | NUR ---
RN NOTES: RECEIVED PATIENT IN BED RESTING COMFORTABLY IN MODERATE HIGH BACK REST. A/O X2-3. ON ROOM AIR SATURATING WELL. NO S/S OF DISTRESS NOTED AT THIS TIME. ON DEPUTY HEAD WITH TELE READING OF SR 90. IV FLUIDS ON THE RIGHT HAND #20G AND RIGHT WRIST WITH NS RUNNING @75ML/HR. INTACT, PATENT, AND FLUSHING WELL. SAFETY MEASURES IN PLACE. BED IN LOW, LOCKED POSITION WITH SR UPX2. CALL LIGHT WITHIN REACH. WILL CONTINUE TO MONITOR.
[2020-04-17] MEDS: PANTOPRAZOLE 40 MG TABLET.DR PO SCH ×2 (07:48→15:30)
[2020-04-17] MEDS: LEVOTHYROXINE SODIUM 100 MCG TABLET PO SCH (07:48)
[2020-04-17 07:50] LABS: BAND % (MANUAL) 22 % (0.0-5.0); EOSINOPHILS % (MANUAL) 4 % (0-4); LYMPHOCYTES % (MANUAL) 26 % (16-48); MONOCYTES % (MANUAL) 13 % (0-11.0); NEUTROPHILS % (MANUAL) 35 (42-76)
[2020-04-17 08:00] VITALS: BP 130/75
[2020-04-17] MEDS: GABAPENTIN 300 MG CAPSULE PO SCH ×3 (08:11→16:35)
[2020-04-17] MEDS: predniSONE 5 MG TABLET PO SCH ×2 (08:11→16:35)
[2020-04-17] MEDS: FAMOTIDINE (20 MG) 20 MG TABLET PO SCH (08:11)
[2020-04-17] MEDS: AMLODIPINE BESYLATE 5 MG TABLET PO SCH (08:11)
[2020-04-17] MEDS: HYDROCODONE/APAP 5/325MG TABLET PO PRN ×3 (08:12→21:26)
[2020-04-17] MEDS: FOLIC ACID 1 MG TABLET PO SCH (08:12)
[2020-04-17] MEDS: METOPROLOL SUCCINATE 50 MG TAB.SR.24H PO SCH (08:57)
[2020-04-17] MEDS: IV NS 0.9% 1,000 ML IV PRN (10:34)
[2020-04-17] MEDS: POTASSIUM CHLORIDE 20 MEQ TAB.PRT.SR PO SCH ×2 (10:35→12:05)
[2020-04-17 16:00] VITALS: BP 116/67
--- NOTE | 2020-04-17 18:56 | NUR ---
RN NOTES: PATIENT IN BED RESTING COMFORTABLY IN MODERATE HIGH BACK REST. A/O X2-3. ON ROOM AIR SATURATING WELL. NO S/S OF DISTRESS NOTED THROUGHOUT THE SHIFT. ON CLIENT SERVICES ADMINISTRATOR WITH TELE READING OF SR 80'S. IV FLUIDS ON THE RIGHT HAND #20G AND RIGHT WRIST WITH NS RUNNING @75ML/HR. INTACT, PATENT, AND FLUSHING WELL. SAFETY MEASURES IN PLACE. BED IN LOW, LOCKED POSITION WITH SR UPX2. CALL LIGHT WITHIN REACH. WILL ENDORSE TO NIGHT NURSE FOR [facility] AND TRANSFER TO [facility], PATIENT GOING TO ROOM 329.
--- NOTE | 2020-04-17 19:20 | NUR ---
GUIDE DOMESTIC TOUR: RECEIVED PATIENT Patient in bed, awake. A/O x. Tolerating on room air, denies SOB. Sinus rhythm with PVC HR 97 in the Tele monitor. IVF infusing. Turned and repositioned, skin re assessment done. Patient to be transferred to Med surg [facility] unit per LUCIANO Rios.
[2020-04-17 19:30] VITALS: BP 125/64
[2020-04-17 19:58] VITALS: BP 125/64
[2020-04-17] MEDS: ENOXAPARIN SODIUM 40 MG/0.4 ML DISP.SYRIN SQ SCH (20:25)
--- NOTE | 2020-04-17 20:25 | NUR ---
ANTICOAGULANT H/H 10. PLT 267 no s/s of bleeding. Lovenox injection co-signed by LUCIANO Salas
[2020-04-17] MEDS: CEFTRIAXONE 1 G in IV D5W 50 ML IV SCH (21:16)
[2020-04-17] MEDS: buPROPion 75 MG TABLET PO SCH (21:26)
[2020-04-18] VITALS (8 sets, daily range): BP systolic 110–153; BP diastolic 64–79
[2020-04-18] MEDS: FLUOCINONIDE 0.05% CREAM 60 GM TUBE TP SCH ×5 (00:30→21:00)
[2020-04-18] MEDS: IV NS 0.9% 1,000 ML IV PRN ×2 (00:37→15:23)
--- NOTE | 2020-04-18 01:52 | NUR ---
LIDEX CREAM NOT AVAILABLE Lidex cream non administered medication not available at this time. Will follow up in am, patient no c/o of body itching at this time.
[2020-04-18] MEDS: LEVOTHYROXINE SODIUM 100 MCG TABLET PO SCH (06:20)
[2020-04-18] MEDS: HYDROCODONE/APAP 5/325MG TABLET PO PRN ×3 (06:23→21:40)
--- NOTE | 2020-04-18 06:46 | NUR ---
CLOTH PATTERN MAKER: END OF SHIFT REPORT Patient in bed, awake, A/O x3, forgetful. Sinus rhythm in the Tele monitor HR 91, tolerating room air, denies SOB. IVF infusing, on IV Abx, Afebrile. Covid test-PCR negative. Lower back/Left hip pain controlled with PRN [place]. SCD in place. Left hip fluid filled blister, lower back excoriation. Wound consult to follow. Patient to be transferred to [facility], will endorse to AM Primary nurse at bedside. wash house supervisor and Charge Nurse aware of scheduled transfer.
[2020-04-18 06:47] LABS: BASOPHILS % (AUTO) 0.4 % (0.0-2.0); EOSINOPHILS % (AUTO) 6.9 % (0.0-6.0); HEMATOCRIT 31 % (33-45); HEMOGLOBIN 10.3 g/dL (11.5-14.8); LYMPHOCYTES # (AUTO) 2.2 /CMM (0.8-4.8); LYMPHOCYTES % (AUTO) 27.5 % (20.0-44.0); MEAN CORPUSCULAR HGB CONC 33 g/dl (31.0-36.0); MEAN CORPUSCULAR VOLUME 103 fL (82-100); MONOCYTES # (AUTO) 0.9 /CMM (0.1-1.30); MONOCYTES % (AUTO) 10.8 % (2.0-12.0); NEUTROPHILS # (AUTO) 4.4 /CMM (1.8-8.9); NEUTROPHILS % (AUTO) 54.4 % (43.0-81.0); PLATELET COUNT (AUTO) 297 /CMM (150-450); RED BLOOD CELL COUNT(AUTO) 3.02 MIL/uL (4.0-5.2); WHITE BLOOD COUNT (AUTO) 8.1 K/uL (4.3-11.0)
[2020-04-18 06:56] LABS: CALCIUM, SERUM 7.8 mg/dL (8.5-10.1); CREATININE 0.6 mg/dL (0.6-1.3); MAGNESIUM 1.8 mg/dL (1.8-2.4); PHOSPHORUS 2.1 mg/dL (2.5-4.9); POTASSIUM 3.3 mmol/L (3.5-5.1)
--- NOTE | 2020-04-18 07:00 | NUR ---
BEDSIDE REPORT Care endorsed to LUCIANO Mcclain
--- NOTE | 2020-04-18 07:43 | NUR ---
PRESSURE CONTROLLER OPENING NOTES BESIDE ENDORSEMENT DONE. PATIENT CAME FROM [facility] ACCOMPANIED BY KOFI RN. SEEN PATIENT IN BED AWAKE AND VERBALLY RESPONSIVE. ORIENTED PATIENT TO UNIT AND USE OF CALL LIGHT BUTTON FOR STAFF ASSISTANCE. A/O X2-3, ABLE TO MAKE NEEDS KNOWN, FARSI-SPEAKING BUT ABLE TO UNDERSTAND SOME CENTRAL AFRICAN. BREATHING EVEN AND UNLABORED ON ROOM AIR, NO ACUTE DISTRESS AT THIS TIME. ON TELE MONITORING, READING OF SR W/ HR AT 84, NO CARDIAC DISTRESS NOTED. IV LINES AT RIGHT WRIST #20 AND RIGHT HAND #24, INTACT AND PATENT. SAFETY PRECAUTIONS IN PLACE: BED LOCKED AND ON LOWEST POSITION, SR UP X2, CALL LIGHT W/IN REACH. WILL CONTINUE TO MONITOR.
[2020-04-18] MEDS: AMLODIPINE BESYLATE 5 MG TABLET PO SCH (09:20)
[2020-04-18] MEDS: PANTOPRAZOLE 40 MG TABLET.DR PO SCH ×2 (09:21→16:17)
[2020-04-18] MEDS: METOPROLOL SUCCINATE 50 MG TAB.SR.24H PO SCH (09:21)
[2020-04-18] MEDS: FOLIC ACID 1 MG TABLET PO SCH (09:21)
[2020-04-18] MEDS: FAMOTIDINE (20 MG) 20 MG TABLET PO SCH (09:21)
[2020-04-18] MEDS: GABAPENTIN 300 MG CAPSULE PO SCH ×3 (09:22→16:17)
[2020-04-18] MEDS: predniSONE 5 MG TABLET PO SCH ×2 (09:22→16:17)
[2020-04-18] MEDS: TRAMADOL HCL 50 MG TABLET PO PRN (09:42)
[2020-04-18] MEDS: POTASSIUM CHLORIDE 20 MEQ TAB.PRT.SR PO SCH ×3 (10:00→12:03)
[2020-04-18] MEDS ORDERED: K PHOS NEUTRAL 250 MG TABLET PO ONE (12:30)
--- NOTE | 2020-04-18 18:55 | NUR ---
SUPERINTENDENT COMMUNICATIONS CLOSING NOTES PATIENT IS IN BED AWAKE AND VERBALLY RESPONSIVE. A/O X2-3, ABLE TO MAKE NEEDS KNOWN, FARSI-SPEAKING BUT ABLE TO UNDERSTAND SOME [place]. BREATHING EVEN AND UNLABORED ON ROOM AIR, NO ACUTE DISTRESS AT THIS TIME. ON TELE MONITORING, READING OF SR W/ HR AT MID 80'S TO 90'S, NO CARDIAC DISTRESS NOTED. PATIENT HAS L HIP BLISTERS, POSITIVE FOR SHINGLES. INFECTION CONTROL MEASURES INSTITUTED PER PROTOCOL. PROPER HANDWASHING OBSERVED. IV LINES AT RIGHT WRIST #20 AND RIGHT HAND #24, INTACT AND PATENT, IVF OF NS RUNNING AT 75ML/HR, INFUSING WELL. DUE MEDS GIVEN DURING THE SHIFT. KEPT CLEAN AND COMFORTABLE. SAFETY PRECAUTIONS MAINTAINED: BED LOCKED AND ON LOWEST POSITION, SR UP X2, CALL LIGHT W/IN REACH. WILL ENDORSE TO PARK MAINTENANCE TECHNICIAN RN FOR [facility].
--- NOTE | 2020-04-18 20:07 | NUR ---
DISPLAY DIRECTOR OPENING NOTE: Patient in bed resting comfortably. Patient awake, alert, and oriented x3, able to make needs known. Patient Farsi speaking but understand Tanzanian. Patient breathing well on room air, No SOB or acute respiratory distress noted. Patient on cardiac monitoring, sinus rhythm. IV access noted on right wrist, 20 gauge, dressing dry and intact, patent, no redness or infiltration. Also noted right hand, 24 gauge IV access, dressing dry and intact, patient, no redness or infiltration. Safety precaution in place, bed is in the lowest level, bed is locked, alarm is on, side rails x2 are up, and call light is within reach. Will continue to monitor.
[2020-04-18] MEDS: buPROPion 75 MG TABLET PO SCH (21:40)
[2020-04-18] MEDS: CEFTRIAXONE 1 G in IV D5W 50 ML IV SCH (21:41)
[2020-04-18] MEDS: ENOXAPARIN SODIUM 40 MG/0.4 ML DISP.SYRIN SQ SCH (21:42)
--- NOTE | 2020-04-18 22:04 | NUR ---
STOCKBROKER NOTE: Non-administered Lidex cream due to medication not in the unit. Checked bed side and casette but was not there. Made senior cisco network engineer and Transfer Station Attendant aware.
--- NOTE | 2020-04-18 22:40 | NUR ---
SHRIMP HEADER NOTE: Reassess patient pain. Patient in bed sleeping with no signs of pain or discomfort. Will continue to monitor.
[2020-04-19] VITALS: BP 125/80
[2020-04-19] MEDS: HYDROCODONE/APAP 5/325MG TABLET PO PRN ×3 (03:10→15:32)
--- NOTE | 2020-04-19 03:10 | NUR ---
MANAGER EDUCATIONAL NOTE: Patient complains of pain on left hip. Patient describes pain as aching and rates 7 on a 0-10 numerical scale. Administered PRN [place] per MD order. Will continue to monitor.
[2020-04-19 04:00] VITALS: BP 121/74
--- NOTE | 2020-04-19 04:29 | NUR ---
BIOINFORMATICS TECHNICIAN NOTE: Reassess pain. Patient in bed sleeping comfortably. Shows no signs of pain or discomfort. Will continue to monitor.
[2020-04-19 04:33] VITALS: BP 121/74
[2020-04-19] MEDS: LEVOTHYROXINE SODIUM 100 MCG TABLET PO SCH (06:04)
--- NOTE | 2020-04-19 06:38 | NUR ---
WOOD TECHNOLOGIST CLOSING NOTE: Patient in bed sleeping comfortably. All needs are met. Patient is breathing well with no acute respiratory distress or SOB. Safety measures is maintained, bed is in the lowest position, bed is locked, alarm is on, side rails x2 are up, and call light is within reach. Will endorse to next shift.
[2020-04-19] MEDS: IV NS 0.9% 1,000 ML IV PRN (06:47)
--- NOTE | 2020-04-19 07:22 | NUR ---
PROGRAM REP NOTES RECEIVED PATIENT IN BED, ALERT AND AWAKE ORIENTED X3. HOB ELEVATED. NO SOB. ON ROOM AIR WITH SPO2 98%. RIGHT WRIST # 20 AND RIGHT HAND #24 INTACT INFUSING NS AT 75ML/HR [place] WELL. ON TELE MONITORING SR: 88. ABLE TO VERBALIZE NEEDS. BED IN LOWEST POSITION, LOCKED. BED ALARM ON. CALL LIGHT WITHIN REACH. FREQUENT VISUAL CHECK DONE.
[2020-04-19 08:00] VITALS: BP 147/75
[2020-04-19] MEDS: PANTOPRAZOLE 40 MG TABLET.DR PO SCH ×2 (08:31→16:33)
[2020-04-19 08:51] LABS: BASOPHILS # (AUTO) 0.1 /CMM (0.0-0.2); BASOPHILS % (AUTO) 1.2 % (0.0-2.0); EOSINOPHILS % (AUTO) 6.9 % (0.0-6.0); HEMATOCRIT 33 % (33-45); HEMOGLOBIN 11.1 g/dL (11.5-14.8); LYMPHOCYTES # (AUTO) 2.3 /CMM (0.8-4.8); LYMPHOCYTES % (AUTO) 26.5 % (20.0-44.0); MEAN CORPUSCULAR HGB CONC 33 g/dl (31.0-36.0); MEAN CORPUSCULAR VOLUME 101 fL (82-100); MONOCYTES # (AUTO) 0.8 /CMM (0.1-1.30); MONOCYTES % (AUTO) 9.5 % (2.0-12.0); NEUTROPHILS # (AUTO) 4.9 /CMM (1.8-8.9); NEUTROPHILS % (AUTO) 55.9 % (43.0-81.0); PLATELET COUNT (AUTO) 354 /CMM (150-450); WHITE BLOOD COUNT (AUTO) 8.8 K/uL (4.3-11.0)
[2020-04-19 08:59] LABS: CREATININE 0.5 mg/dL (0.6-1.3); PHOSPHORUS 2.4 mg/dL (2.5-4.9); POTASSIUM 3.4 mmol/L (3.5-5.1)
[2020-04-19] MEDS: FLUOCINONIDE 0.05% CREAM 60 GM TUBE TP SCH ×3 (09:00→16:34)
[2020-04-19] MEDS: FOLIC ACID 1 MG TABLET PO SCH (09:09)
[2020-04-19] MEDS: AMLODIPINE BESYLATE 5 MG TABLET PO SCH (09:09)
[2020-04-19] MEDS: GABAPENTIN 300 MG CAPSULE PO SCH ×3 (09:09→16:33)
[2020-04-19] MEDS: FAMOTIDINE (20 MG) 20 MG TABLET PO SCH (09:09)
[2020-04-19] MEDS: METOPROLOL SUCCINATE 50 MG TAB.SR.24H PO SCH (09:09)
[2020-04-19] MEDS: predniSONE 5 MG TABLET PO SCH ×2 (09:29→16:33)
[2020-04-19] MEDS ORDERED: CEPH-570 PO (09:50)
--- NOTE | 2020-04-19 10:20 | NUR ---
WOUND CARE CONSULT: PT REFUSED SKIN ASSESSMENT. PT GOING TO BE DISCHARGED TODAY. DISCUSSED SKIN PROTECTION WITH NURSING STAFF. CURRENT ISAURO SCORE IS 17.
[2020-04-19 10:27] LABS: EOSINOPHILS % (MANUAL) 6 % (0-4); LYMPHOCYTES % (MANUAL) 21 % (16-48); MONOCYTES % (MANUAL) 6 % (0-11.0); NEUTROPHILS % (MANUAL) 67 (42-76)
[2020-04-19] MEDS: TRAMADOL HCL 50 MG TABLET PO PRN (10:42)
[2020-04-19] MEDS: POTASSIUM CHLORIDE 20 MEQ TAB.PRT.SR PO SCH ×2 (10:42→13:23)
[2020-04-19 16:00] VITALS: BP 140/100
[2020-04-19] MEDS ORDERED: K PHOS NEUTRAL 250 MG TABLET PO ONE (16:00)
--- NOTE | 2020-04-19 19:10 | NUR ---
DISCHARGE NOTES ALERT AND ORIENTED X3. PATIENT FOR DISCHARGE. DISCHARGE INSTRUCTIONS, TEACHINGS AND EDUCATION PROVIDED TO PATIENT. IV ACCESS REMOVED WITH CATHETER TIP INTACT WITH GAUZE DRESSING APPLIED. ALL BELONGINGS ACCOUNTED FOR. DENIES ANY C/O PAIN NOR DISCOMFORT AT THIS TIME. PATIENT'S AWARE OF DISCHARGE AND AWAITING FOR PATIENT TO RETURN HOME. PATIENT PICKED UP BY AMBULANCE AND LEFT VIA GURNEY ACCOMPANIED BY 3 EMT. PATIENT LEFT IN STABLE CONDITION.
== END 2020-04-19 19:00 | disposition home health service (06) | DRG 682 ==
LOC: ER 17:10 → TELE2 20:51 → TELE 04-18 07:05
PROVIDERS: ADMIT Internal Medicine; ATTEND Internal Medicine
DX: N17.0 Acute kidney failure with tubular necrosis (principal); I50.33 Acute on chronic diastolic (congestive) heart failure; G93.41 Metabolic encephalopathy; I21.A1 Myocardial infarction type 2; S22.41XA Multiple fractures of ribs, right side, initial encounter for closed fracture; N39.0 Urinary tract infection, site not specified; E87.1 Hypo-osmolality and hyponatremia; B02.29 Other postherpetic nervous system involvement; I11.0 Hypertensive heart disease with heart failure; Z79.899 Other long term (current) drug therapy; X58.XXXA Exposure to other specified factors, initial encounter; Y92.9 Unspecified place or not applicable; E03.9 Hypothyroidism, unspecified; E86.1 Hypovolemia; F32.9 Major depressive disorder, single episode, unspecified; E87.6 Hypokalemia; G89.29 Other chronic pain; I25.2 Old myocardial infarction; M06.9 Rheumatoid arthritis, unspecified; R29.6 Repeated falls; Z79.52 Long term (current) use of systemic steroids; Z79.890 Hormone replacement therapy; Z96.653 Presence of artificial knee joint, bilateral; Z96.629 Presence of unspecified artificial elbow joint; B96.89 Other specified bacterial agents as the cause of diseases classified elsewhere; Z87.81 Personal history of (healed) traumatic fracture; M19.90 Unspecified osteoarthritis, unspecified site
CPT/HCPCS: 36415; 71045-TC; 76700-TC; 80048-TC; 80076-TC; 81000-TC; 83605-TC; 83690-TC; 83735-TC; 84100-TC; 84484-TC; 85025-TC; 87040-TC; 87081-TC; 87086-TC; 87186-TC; G0378; J0696; J1650; J2405; J2543; J3370; J3480; J7030; J7040; J7050; J7060; J7512; U0003

== ENCOUNTER 2021-11-14 01:34 | Emergency (ER) | payer MEDICARE, OTHER ==
[~2021-11-14] VITALS: Ht 157.5 cm; Wt 72.6 kg
[~2021-11-14 01:34] MED LIST changes: +CEPH-570 PO
[2021-11-14] MEDS ORDERED: MORPHINE SULFATE INJ 4 MG/ML DISP.SYRIN ONE (02:24)
[2021-11-14] MEDS ORDERED: MORPHINE SULFATE INJ 2 MG/ML DISP.SYRIN IM ONE (02:30)
--- NOTE | 2021-11-14 02:30 | NUR ---
BIBRA 88 FROM HOME FOR C/O LOWER BACK PAIN S/P FALL FROM COMMODE. NO GROSS TRAUMA OR DEFORMITIES. PT AWAKE AND ALERT X4 NO NEURO DEFECITS. ALL V/S WNL.
--- NOTE | 2021-11-14 02:40 | NUR ---
PT TRANSPORTED TO [facility] VIA [facility]
[2021-11-14] MEDS ORDERED: HYDR-3972 PO (05:29)
--- NOTE | 2021-11-14 06:02 | NUR ---
Patient discharged to home in stable condition. Written and verbal after care instructions given. Patient verbalizes understanding of instruction.
[2021-11-14 06:33] VITALS: BP 152/87
== END 2021-11-14 06:33 | disposition home or self-care (01) ==
LOC: ER 01:35
DX: G89.29 Other chronic pain (principal); M54.50 Low back pain, unspecified; M06.9 Rheumatoid arthritis, unspecified; I10 Essential (primary) hypertension; E03.9 Hypothyroidism, unspecified; K21.9 Gastro-esophageal reflux disease without esophagitis; Z96.653 Presence of artificial knee joint, bilateral; Z88.8 Allergy status to other drugs, medicaments and biological substances; Z87.39 Personal history of other diseases of the musculoskeletal system and connective tissue; Z79.899 Other long term (current) drug therapy; W18.11XA Fall from or off toilet without subsequent striking against object, initial encounter; Y93.89 Activity, other specified; Y92.89 Other specified places as the place of occurrence of the external cause; Y99.8 Other external cause status
CPT/HCPCS: 72131; 96372; 99283; J2270